=== PATIENT | male | born 1940 | race Caucasian/White ===

== ENCOUNTER 2017-06-15 09:41 | Inpatient (IN) | payer MEDICARE, OTHER ==
[~2017-06-15] VITALS: Ht 172.7 cm; Wt 102.5 kg
[~2017-06-15 09:41] MED LIST: DOXA2; FLUO10; FURO40; HYDACE5 PO; METF500; METR500 PO; RXSULTRIDS PO; SULTRIDS PO
[2017-06-15 10:31] LABS: BASOPHILS ABSOLUTE AUTO 0.05 K/mm3 (0.00-0.23); BASOPHILS PERCENT AUTO 1 % (0-2); EOSINOPHILS ABSOLUTE AUTO 0.11 K/mm3 (0.00-0.68); EOSINOPHILS PERCENT AUTO 2 % (0-6); Hematocrit 43.3 % (37.0-53.0); Hemoglobin 14.5 g/dL (13.5-17.5); IMMATURE GRAN ABSOLUTE AUTO 0.04 K/mm3 (0.00-0.10); IMMATURE GRAN PERCENT AUTO 1 % (0-1); LYMPHOCYTES ABSOLUTE AUTO 0.83 K/mm3 (0.84-5.20); LYMPHOCYTES PERCENT AUTO 11 % (21-46); MONOCYTES PERCENT AUTO 8 % (4-13); Mean Corpuscular HGB 31.7 pg (26.0-34.0); Mean Corpuscular HGB Conc 33.5 g/dL (31.5-36.5); Mean Corpuscular Volume 95 fL (80-100); Mean Platelet Volume 10.4 fL (9.1-12.4); NEUTROPHILS ABSOLUTE AUTO 5.72 K/mm3 (1.96-9.15); NEUTROPHILS PERCENT AUTO 78 % (41-73); Platelet Count 165 K/mm3 (150-400); RDW Coefficient Variation 13.4 % (11.7-14.2); RDW Standard Deviation 46.4 fL (35.1-46.3); Red Blood Cell Count 4.57 M/mm3 (4.30-5.90); White Blood Cell Count 7.35 K/mm3 (4.00-11.30)
[2017-06-15 10:56] LABS: Alanine Aminotransfer (ALT/SGP 31 U/L (12-78); Albumin, Blood 3.3 g/dL (3.4-5.0); Albumin/Globulin Ratio 0.8 (0.8-1.8); Alk Phos 83 U/L (50-136); Anion Gap 7 mmol/L (6-16); Aspartate Aminotrans (AST/SGOT 25 U/L (12-37); Blood Urea Nitrogen 12 mg/dL (8-24); Bun/Creatinine Ratio 15.1 (12.0-20.0); CO2, Blood 27 mmol/L (21-32); Chloride, Blood 103 mmol/L (98-108); Globulin, Blood 3.9 g/dL (2.2-4.0); Glomerular Filtration Rate >60 (60-); Glucose, Blood 143 mg/dL (70-99); Potassium, Blood 3.8 mmol/L (3.5-5.5); Sodium, Blood 137 mmol/L (136-145); Total Protein, Blood 7.2 g/dL (6.4-8.2)
[2017-06-15] MEDS ORDERED: LISI20 (11:13)
[2017-06-15] MEDS ORDERED: HYDCHL12.5 PO (11:14)
[2017-06-15 11:15] LABS: Influenza A Negative (NEGATIVE); Influenza B Negative (NEGATIVE)
[2017-06-15] MEDS ORDERED: ATOR40TA PO (11:15)
[2017-06-15] MEDS ORDERED: Prozac20 MG PO (11:16)
[2017-06-15] MEDS ORDERED: Carbidopa-Levo1 EAC4 PO (11:16)
[2017-06-15] MEDS ORDERED: DOXA4 PO (11:17)
[2017-06-15] MEDS ORDERED: LISI20 PO (11:18)
[2017-06-16 05:05] LABS: BASOPHILS ABSOLUTE AUTO 0.03 K/mm3 (0.00-0.23); BASOPHILS PERCENT AUTO 1 % (0-2); EOSINOPHILS ABSOLUTE AUTO 0.24 K/mm3 (0.00-0.68); EOSINOPHILS PERCENT AUTO 5 % (0-6); Hematocrit 39.1 % (37.0-53.0); Hemoglobin 12.7 g/dL (13.5-17.5); IMMATURE GRAN ABSOLUTE AUTO 0.02 K/mm3 (0.00-0.10); IMMATURE GRAN PERCENT AUTO 0 % (0-1); LYMPHOCYTES PERCENT AUTO 22 % (21-46); MONOCYTES ABSOLUTE AUTO 0.47 K/mm3 (0.16-1.47); MONOCYTES PERCENT AUTO 10 % (4-13); Mean Corpuscular HGB Conc 32.5 g/dL (31.5-36.5); Mean Corpuscular Volume 95 fL (80-100); Mean Platelet Volume 10.4 fL (9.1-12.4); NEUTROPHILS PERCENT AUTO 61 % (41-73); Platelet Count 141 K/mm3 (150-400); RDW Coefficient Variation 13.6 % (11.7-14.2); RDW Standard Deviation 47.7 fL (35.1-46.3); White Blood Cell Count 4.56 K/mm3 (4.00-11.30)
[2017-06-16 05:22] LABS: Alanine Aminotransfer (ALT/SGP 9 U/L (12-78); Albumin, Blood 2.8 g/dL (3.4-5.0); Albumin/Globulin Ratio 0.8 (0.8-1.8); Alk Phos 67 U/L (50-136); Anion Gap 6 mmol/L (6-16); Aspartate Aminotrans (AST/SGOT 23 U/L (12-37); Bilirubin, Total 1.4 mg/dL (0.1-1.0); Blood Urea Nitrogen 15 mg/dL (8-24); Bun/Creatinine Ratio 19.2 (12.0-20.0); CO2, Blood 28 mmol/L (21-32); Calcium, Blood 8.4 mg/dL (8.5-10.1); Chloride, Blood 106 mmol/L (98-108); Creatinine, Blood 0.78 mg/dL (0.60-1.20); Globulin, Blood 3.3 g/dL (2.2-4.0); Glomerular Filtration Rate >60 (60-); Glucose, Blood 124 mg/dL (70-99); Potassium, Blood 3.6 mmol/L (3.5-5.5); Sodium, Blood 140 mmol/L (136-145); Total Protein, Blood 6.1 g/dL (6.4-8.2)
[2017-06-16 09:49] LABS: Anion Gap 7 mmol/L (6-16); Blood Urea Nitrogen 14 mg/dL (8-24); Bun/Creatinine Ratio 20.1 (12.0-20.0); CO2, Blood 25 mmol/L (21-32); Calcium, Blood 8.5 mg/dL (8.5-10.1); Chloride, Blood 107 mmol/L (98-108); Glomerular Filtration Rate >60 (60-); Glucose, Blood 170 mg/dL (70-99); Potassium, Blood 3.7 mmol/L (3.5-5.5); Sodium, Blood 139 mmol/L (136-145)
[2017-06-17 04:34] LABS: BASOPHILS ABSOLUTE AUTO 0.03 K/mm3 (0.00-0.23); BASOPHILS PERCENT AUTO 1 % (0-2); EOSINOPHILS ABSOLUTE AUTO 0.27 K/mm3 (0.00-0.68); EOSINOPHILS PERCENT AUTO 6 % (0-6); Hematocrit 39.9 % (37.0-53.0); Hemoglobin 13.1 g/dL (13.5-17.5); IMMATURE GRAN ABSOLUTE AUTO 0.03 K/mm3 (0.00-0.10); IMMATURE GRAN PERCENT AUTO 1 % (0-1); LYMPHOCYTES ABSOLUTE AUTO 1.08 K/mm3 (0.84-5.20); LYMPHOCYTES PERCENT AUTO 25 % (21-46); MONOCYTES ABSOLUTE AUTO 0.36 K/mm3 (0.16-1.47); MONOCYTES PERCENT AUTO 8 % (4-13); Mean Corpuscular HGB 31.5 pg (26.0-34.0); Mean Corpuscular HGB Conc 32.8 g/dL (31.5-36.5); Mean Corpuscular Volume 96 fL (80-100); Mean Platelet Volume 10.2 fL (9.1-12.4); NEUTROPHILS ABSOLUTE AUTO 2.56 K/mm3 (1.96-9.15); NEUTROPHILS PERCENT AUTO 59 % (41-73); Platelet Count 143 K/mm3 (150-400); RDW Coefficient Variation 13.2 % (11.7-14.2); RDW Standard Deviation 47.4 fL (35.1-46.3); Red Blood Cell Count 4.16 M/mm3 (4.30-5.90); White Blood Cell Count 4.33 K/mm3 (4.00-11.30)
[2017-06-17] MEDS ORDERED: AZIT500 PO (15:07)
[2017-06-17] MEDS ORDERED: CEPH500 PO (15:08)
== END 2017-06-17 15:30 | disposition home or self-care (01) | DRG 195 ==
LOC: ER 09:41 → MEDS 13:24
PROVIDERS: Emergency Medicine; Family Medicine
DX: J18.9 Pneumonia, unspecified organism (principal); E11.69 Type 2 diabetes mellitus with other specified complication; E66.9 Obesity, unspecified; E78.5 Hyperlipidemia, unspecified; I10 Essential (primary) hypertension; G20 Parkinson's disease; R29.6 Repeated falls; M19.011 Primary osteoarthritis, right shoulder; Z68.34 Body mass index [BMI] 34.0-34.9, adult; Z87.891 Personal history of nicotine dependence; Z88.5 Allergy status to narcotic agent; Z79.84 Long term (current) use of oral hypoglycemic drugs; Z79.899 Other long term (current) drug therapy
CPT/HCPCS: 36415; 71046; 73030; 80048; 80053; 81000; 82947; 83036; 83605; 84484; 85025; 87040; 87804; 92610; 93005; 93010; 94640; 94760; 94762; 96360; 96361; 97116; 97162; 97166; 97530; 97535; 99285; G8978; G8979; G8987; G8988; G8996; G8997; G8998; J0696; J1650; J7030

== ENCOUNTER 2018-02-20 12:01 | Emergency (ER) | payer MEDICARE, OTHER ==
[~2018-02-20] VITALS: Ht 172.7 cm; Wt 99.8 kg
[~2018-02-20 12:01] MED LIST changes: +ATOR40TA PO; +AZIT500 PO; +CEPH500 PO; +Carbidopa-Levo1 EAC4 PO; +DOXA4 PO; +HYDCHL12.5 PO; +LISI20; +LISI20 PO; +Prozac20 MG PO
== END 2018-02-20 13:18 | disposition home or self-care (01) ==
LOC: ER 12:01
DX: R07.81 Pleurodynia (principal); Z88.5 Allergy status to narcotic agent; Z79.899 Other long term (current) drug therapy; G20 Parkinson's disease; Z87.891 Personal history of nicotine dependence
CPT/HCPCS: 71046; 99283-25

== ENCOUNTER 2018-08-08 00:22 | Emergency (ER) | payer MEDICARE, OTHER ==
[2018-08-08 03:11] LABS: Alanine Aminotransfer (ALT/SGP 23 U/L (12-78); Albumin, Blood 2.8 g/dL (3.4-5.0); Alk Phos 62 U/L (50-136); Anion Gap 12 mmol/L (6-16); Aspartate Aminotrans (AST/SGOT 19 U/L (12-37); Bilirubin, Total 0.7 mg/dL (0.1-1.0); Blood Urea Nitrogen 24 mg/dL (8-24); Bun/Creatinine Ratio 26.2 (12.0-20.0); CO2, Blood 20 mmol/L (21-32); Calcium, Blood 8.2 mg/dL (8.5-10.1); Chloride, Blood 108 mmol/L (98-108); Creatinine, Blood 0.92 mg/dL (0.60-1.20); Globulin, Blood 2.7 g/dL (2.2-4.0); Glomerular Filtration Rate >60 (60-); Glucose, Blood 194 mg/dL (70-99); Potassium, Blood 3.8 mmol/L (3.5-5.5); Sodium, Blood 140 mmol/L (136-145); Total Protein, Blood 5.5 g/dL (6.4-8.2); Troponin I <0.015 ng/mL (0.000-0.040)
[2018-08-08 03:21] LABS: BASOPHILS ABSOLUTE AUTO 0.05 K/mm3 (0.00-0.23); BASOPHILS PERCENT AUTO 1 % (0-2); EOSINOPHILS ABSOLUTE AUTO 0.11 K/mm3 (0.00-0.68); EOSINOPHILS PERCENT AUTO 1 % (0-6); Hematocrit 36.4 % (37.0-53.0); Hemoglobin 11.9 g/dL (13.5-17.5); IMMATURE GRAN ABSOLUTE AUTO 0.09 K/mm3 (0.00-0.10); IMMATURE GRAN PERCENT AUTO 1 % (0-1); International Normalized Ratio 1.19; LYMPHOCYTES ABSOLUTE AUTO 1.73 K/mm3 (0.84-5.20); LYMPHOCYTES PERCENT AUTO 21 % (21-46); MONOCYTES ABSOLUTE AUTO 0.45 K/mm3 (0.16-1.47); MONOCYTES PERCENT AUTO 6 % (4-13); Mean Corpuscular HGB 31.8 pg (26.0-34.0); Mean Corpuscular HGB Conc 32.7 g/dL (31.5-36.5); Mean Corpuscular Volume 97 fL (80-100); Mean Platelet Volume 10.3 fL (9.1-12.4); NEUTROPHILS ABSOLUTE AUTO 5.79 K/mm3 (1.96-9.15); NEUTROPHILS PERCENT AUTO 71 % (41-73); Platelet Count 145 K/mm3 (150-400); Prothrombin Time Results 12.4 Sec (9.7-11.5); RDW Coefficient Variation 13.2 % (11.7-14.2); Red Blood Cell Count 3.74 M/mm3 (4.30-5.90); White Blood Cell Count 8.22 K/mm3 (4.00-11.30)
== END 2018-08-08 02:35 | disposition short-term general hospital (02) ==
LOC: ER 00:22
PROVIDERS: Emergency Medicine
DX: K92.2 Gastrointestinal hemorrhage, unspecified (principal); I25.2 Old myocardial infarction; I25.10 Atherosclerotic heart disease of native coronary artery without angina pectoris; E11.9 Type 2 diabetes mellitus without complications; Z79.899 Other long term (current) drug therapy; Z79.84 Long term (current) use of oral hypoglycemic drugs
CPT/HCPCS: 36430; 80053; 84484; 85025; 85610; 85730; 86850; 86900; 86901; 86923; 96361; 96374; 96375; 99284-25; C9113; J2405; J7030; J7120; P9016

== ENCOUNTER 2018-11-02 20:28 | Emergency (ER) | payer MEDICARE, OTHER ==
[~2018-11-02] VITALS: Ht 172.7 cm; Wt 102.5 kg
== END 2018-11-02 23:25 | disposition home or self-care (01) ==
LOC: ER 20:28
DX: S42.254A Nondisplaced fracture of greater tuberosity of right humerus, initial encounter for closed fracture (principal); I10 Essential (primary) hypertension; E11.9 Type 2 diabetes mellitus without complications; G20 Parkinson's disease; Z87.891 Personal history of nicotine dependence; Z88.5 Allergy status to narcotic agent; Z79.899 Other long term (current) drug therapy; Z79.84 Long term (current) use of oral hypoglycemic drugs; W18.2XXA Fall in (into) shower or empty bathtub, initial encounter; Y93.E1 Activity, personal bathing and showering
CPT/HCPCS: 73030; 73200; 99284-25; A9270; A9270-GY

== ENCOUNTER 2018-12-27 12:42 | Inpatient (IN) | payer MEDICARE, OTHER ==
[~2018-12-27] VITALS: Ht 172.7 cm; Wt 101.9 kg
[~2018-12-27 12:42] MED LIST changes: +BENADRYL25 MG PO; +BUPR150ER PO; +Doxazosin Mesyla4 MG PO; +FURO20 PO; +METO25ER PO; +POTA10T PO; +Prozac40 MG PO; +THERA-D2000 UNIT PO; +Tylenol325 MG PO
--- NOTE | 2018-12-28 11:29 | NUR ---
"DAY SURGERY RN | TO OR BOTH DOCTORS AND FOOD AND BEVERAGE OUTLETS MANAGER HAVE SEEN. REPORT TO TENISHA ESCALERA RN. TO OR."
--- NOTE | 2018-12-28 11:33 | NUR ---
"DAY SURGERY RN | PATIENT BELONGINGS TAKEN TO ROOM INCLUDING WHEELCHAIR AND BAG OF CLOTHES."
--- NOTE | 2018-12-28 13:41 | NUR ---
12/28/18 1341 Aissatou Branch WENT OPEN AT [id number]
--- NOTE | 2018-12-28 17:00 | NUR ---
PATIENT ARRIVED FROM THE OR TO ICU ROOM 7 VIA ICU BED, PATIENT IS EXTUBATED AND CURRENTLY ON A NRB MASK WITH 6L OF O2 INFUSING, O2 SATURATION IN MID TO UPPER 90'S, PATIENT IS IN SR WITH HR IN 80'S, SBP'S IN 90'S TO LOW 100'S, NEOSYNEPHRINE AVAILABLE IF NEEDED, PATIENT HAS 2 PIV'S 18G IN RIGHT FA AND 18G IN LEFT UPPER ARM, PATIENT ALSO ARRIVED WITH A ART LINE IN PLACE BUT WE WERE UNABLE TO OBTAIN READING AND ART LINE WAS DISCONTINUED PER ANESTHESIOLOGIST, PRESSURE WAS HELD FOR 15 MINUTES AND HEMOSTASIS OBTAINED, PATIENT HAS LR AT 125 CC/HR INFUSING AT THIS TIME, HAS MIDABDOMINAL INCISION WITH SMALL AMOUNT OF SANGINOUS DRAINAGE, DRESSING WITH WOUNDVAC, ALSO THERE IS A LEFT LOWER QUADRANT PUNCTURE SITE COVERED WITH GAUZE, NO BLEEDING NOTED, RIGHT LOWER QUADRANT HAS A MAIDA DRAIN WITH SANGUINOUS DRAINAGE, NO BOWEL TONES NOTED AT THIS TIME, PATIENT ALSO HAS A BARRERA CATHETER IN PLACE WITH SMALL AMOUNT OF DARK YELLOW URINE DRAINING, PATIENT IS AROUSEABLE TO VERBAL STIMULI AND ABLE TO UTTER A FEW WORDS AND OTHERWISE GROANS AT TIMES, NO SIGN OF PAIN AT THIS TIME, PATIENT WAS PLACED ON MONITOR, FAMILY AT BEDSIDE, ORIENTED TO NEW ENVIRONMENT AND ROOM, CALL LIGHT GIVEN AND EXPLAINED, FAMILY VERBALIZED UNDERSTANDING, CALL LIGHT IN REACH, WILL CONTINUE TO MONITOR.
[2018-12-28 17:29] LABS: BASOPHILS ABSOLUTE AUTO 0.03 K/mm3 (0.00-0.23); BASOPHILS PERCENT AUTO 0 % (0-2); EOSINOPHILS ABSOLUTE AUTO 0.01 K/mm3 (0.00-0.68); EOSINOPHILS PERCENT AUTO 0 % (0-6); Hemoglobin 13.2 g/dL (13.5-17.5); IMMATURE GRAN ABSOLUTE AUTO 0.04 K/mm3 (0.00-0.10); IMMATURE GRAN PERCENT AUTO 0 % (0-1); LYMPHOCYTES ABSOLUTE AUTO 0.71 K/mm3 (0.84-5.20); LYMPHOCYTES PERCENT AUTO 7 % (21-46); MONOCYTES ABSOLUTE AUTO 0.69 K/mm3 (0.16-1.47); MONOCYTES PERCENT AUTO 7 % (4-13); Mean Corpuscular HGB 28.4 pg (26.0-34.0); Mean Corpuscular HGB Conc 31.4 g/dL (31.5-36.5); Mean Corpuscular Volume 90 fL (80-100); Mean Platelet Volume 9.6 fL (9.1-12.4); NEUTROPHILS ABSOLUTE AUTO 8.99 K/mm3 (1.96-9.15); NEUTROPHILS PERCENT AUTO 86 % (41-73); Platelet Count 284 K/mm3 (150-400); RDW Coefficient Variation 14.5 % (11.7-14.2); RDW Standard Deviation 47.8 fL (35.1-46.3); Red Blood Cell Count 4.65 M/mm3 (4.30-5.90); White Blood Cell Count 10.47 K/mm3 (4.00-11.30)
--- NOTE | 2018-12-28 17:30 | NUR ---
REYNA DONATO DID NOT DO THE CARE OF THIS PT BRANNON DONATO DID AND CHARTING WAS DONE UNDER TON NAME UNKNOWN TO BRANNON DONATO AT THE TIME . PT HAD NO ACUTE CHANGES WHILE IN PACU LEFT PACU WITH STABLE VS
[2018-12-28 17:48] LABS: Anion Gap 10 mmol/L (6-16); Blood Urea Nitrogen 19 mg/dL (8-24); Bun/Creatinine Ratio 21.8 (12.0-20.0); CO2, Blood 24 mmol/L (21-32); Calcium, Blood 8.6 mg/dL (8.5-10.1); Chloride, Blood 104 mmol/L (98-108); Creatinine, Blood 0.87 mg/dL (0.60-1.20); Glomerular Filtration Rate >60 (60-); Glucose, Blood 180 mg/dL (70-99); Potassium, Blood 3.8 mmol/L (3.5-5.5); Sodium, Blood 138 mmol/L (136-145)
--- NOTE | 2018-12-28 20:57 | NUR ---
ASSUMED PT CARE AT 1915 FROM KINGA SHAH PT SLEEPING IN BED; EASILY AROUSABLE. STILL WAKING UP FROM GENERAL ANESTHESIA. NON-REBREATHER MASK ON AT 6L/MIN. ALERT TO PERSON, PLACE, TIME, AND EVENT. PT CONTINUES TO STATE HE FEELS THE NEED TO PEE. BARRERA CATHETER IS PATENT AND DRAINING TO GRAVITY; IRRIGATED WITH 30CC OF WATER. NO FAMILY AT BEDSIDE AT THIS TIME. PT ABLE TO FOLLOW COMMANDS APPROPRIATELY. PT DENIED PAIN AT FIRST, AND THEN COMPLAINED OF PAIN TO HIS ABDOMEN. HE IS ABLE TO DEEP BREATHE WHEN INSTRUCTED; UNABLE TO COUGH D/T MAJOR ABDOMINAL SURGERY, BUT HE IS ABLE TO CLEAR HIS THROAT. PT SWITCHED OVER TO 2L VIA NC; WITH BIOX MAINTAINING GREATER THAN 95%. MEDICATED WITH 25MG OF FENTANYL PER ORDERS AND PT WAS REPOSITIONED FOR COMFORT. CALL LIGHT WITHIN REACH; WILL CONTINUE TO ASSESS PT FOR NEEDS.
--- NOTE | 2018-12-29 02:27 | NUR ---
PT BECAME NAUSEAS; MEDICATED WITH PRN ZOFRAN PER ORDERS. APPLIED COLD CLOTHS TO FOREHEAD AND BACK OF NECK. NAUSEA RESOLVED. PT THEN C/O PAIN; MEDICATED WITH 50MCG OF FENTANYL PER ORDERS. UPON FLUSHING IV POST MED ADMINISTRATION; IT WAS NOTED THAT IV HAD INFILTRATED. IMMEDIATLY STOPPED FLUIDS AND DISCONTINUED IV ACCESS. INITIATED NEW IV ACCESS TO RIGHT AC. PT STATED RELIEF FROM PAIN MEDICATION; THEREFORE, IT APPEARS PT RECEIVED FENTANYL DOSE BEFORE IV HAD INFILTRATED.
[2018-12-29 03:52] LABS: BASOPHILS ABSOLUTE AUTO 0.01 K/mm3 (0.00-0.23); BASOPHILS PERCENT AUTO 0 % (0-2); EOSINOPHILS PERCENT AUTO 0 % (0-6); Hematocrit 40.8 % (37.0-53.0); Hemoglobin 12.6 g/dL (13.5-17.5); IMMATURE GRAN ABSOLUTE AUTO 0.03 K/mm3 (0.00-0.10); IMMATURE GRAN PERCENT AUTO 0 % (0-1); LYMPHOCYTES ABSOLUTE AUTO 0.46 K/mm3 (0.84-5.20); LYMPHOCYTES PERCENT AUTO 6 % (21-46); MONOCYTES ABSOLUTE AUTO 0.64 K/mm3 (0.16-1.47); MONOCYTES PERCENT AUTO 8 % (4-13); Mean Corpuscular HGB 28.6 pg (26.0-34.0); Mean Corpuscular HGB Conc 30.9 g/dL (31.5-36.5); Mean Platelet Volume 9.8 fL (9.1-12.4); NEUTROPHILS ABSOLUTE AUTO 6.84 K/mm3 (1.96-9.15); NEUTROPHILS PERCENT AUTO 86 % (41-73); Platelet Count 250 K/mm3 (150-400); RDW Coefficient Variation 14.6 % (11.7-14.2); RDW Standard Deviation 49.5 fL (35.1-46.3); Red Blood Cell Count 4.41 M/mm3 (4.30-5.90); White Blood Cell Count 7.98 K/mm3 (4.00-11.30)
[2018-12-29 03:55] LABS: Mean Corpuscular Volume 93 fL (80-100)
--- NOTE | 2018-12-29 05:16 | NUR ---
END OF SHIFT SUMMARY PT IS MORE ALERT AND ORIENTED. ABLE TO FOLLOW COMMANDS AND MAKE NEEDS KNOWN. ABLE TO PROTECT OWN AIRWAY. ABLE TO DEEP BREATHE AND CLEAR THROAT; PT ATTEMPTED TO COUGH, BUT WAS TO PAINFUL. MEDICATED WITH FENTANYL PER ORDERS T/O NIGHT; WHICH APPEARED EFFECTIVE. PT REMAINED ON 2L VIA NC T/O NIGHT WITH BIOX GREATER THAN 91%. LUNG SOUNDS ARE CLEAR T/O AND DIMINISHED TO BILATERAL LOWER LOBES. NSR WITH HR 70-80'S. ABDOMEN IS SEVERLY DISTENDED, FIRM AND TENDER UPON PALPATION. MIDLINE INCISION HAS WOUND VAC THAT IS PATENT AND INTACT; MINIMAL SANGUINEOUS DRAINAGE NOTED TO DRESSING. ACTIVE BT NOTED TO RUQ ONLY; HYPOACTIVE T/O ALL OTHER QUADRANTS. ABDOMEN NOTED TO BE PROTRUDING MORE TO RIGHT SIDE WITH A FLAT APPEARANCE MORE TO THE LEFT, WHICH WAS PT'S BASELINE UPON ASSUMPTION OF CARE. MAIDA DRAIN TO RLQ WITH MODERATE AMOUNTS OF SANGUINEOUS DRAINGE NOTED. RIGHT RADIAL ACCESS SITE REMAINS SOFT, NON-TENDER, NO SIGNS OF HEMATOMA; CAP REFILL <3SEC. DENIES ANY NUMBNESS TINGLING TO DISTAL FINGERS; RADIAL PULSE IS STRONG. DISTAL FINGERS ARE COOL, BUT SKIN COLOR IS NORMAL AND BIOX NOTED TO HAVE A GOOD PLETH. ARMBOARD REMAINS INTACT TO RIGHT WRIST/FOREARM. MODERATE, NON-PITTING EDEMA NOTED TO BILATERAL ANKLES. LR INFUSING AT 125MLS/HR. BARRERA CATH IS PATENT AND DRAINING TO GRAVITY; MINIMAL URINE OUTPUT THIS SHIFT; TOTAL OF 375CC NOTED TO BE DARK YELLOW. ATTEMPTED REPOSITIONING EVERY TWO HOURS; HOWEVER, PT ALWAYS FELT IT TO BE MORE COMFORTABLE ON HIS BACK. UNABLE TO TOLERATE BEING ON SIDE FOR VERY LONG. SHIFTED HIPS AND WEIGHT EVERY TWO HOURS TO HELP OFFLOAD BODY WEIGHT ON HIGH RISK PRESSURE AREAS. PT WAS MORE AWAKE AND ALERT; TRIALED SIPS OF WATER IN WHICH PT TOLERATED VERY WELL. ADMINISTERED 0600 MEDICATIONS WHOLE WITH WATER IN WHICH PT DIDN'T APPEARS TO SHOW ANY SIGNS OF CHOKING OR SILENT ASPIRATION. CALL LIGHT LEFT WITHIN REACH; APPEARS COMFORTABLE AT THIS TIME. WILL CONTINUE TO MONITOR UNTIL REPORT IS HANDED OFF TO ONCOMING RN.
--- NOTE | 2018-12-29 07:24 | NUR ---
DR RAMIREZ IN TO SEE PT Plan of care discussed. Provider states pt is appropriate for surgical floor status without telemetry. States pt is okay to take meds with water. Okay for clear liquid diet.
--- NOTE | 2018-12-29 09:45 | NUR ---
PHYSICAL THERAPY IN TO SEE PT PT Hi in to see pt. This RN assisted to help pt sit on edge of bed and then stand. Pt tolerated activity well. Anxious and stated "I can't do it" several times. After returning to bed, pain assessed. Pt stated he was comfortable. Will continue to reassess.
--- NOTE | 2018-12-29 10:11 | NUR ---
CALL PLACED TO DR RAMIREZ Physical therapistHi, recommended occupational therapy. This RN placed call to Dr Ramirez. New orders given.
--- NOTE | 2018-12-29 10:30 | NUR ---
TRANSFER TO ROOM 208 Pt transferred to surgical floor. Telephone report given to Debra DONATO. Pt tranported via bed. Medications, chart, and belongings transferred with patient.
--- NOTE | 2018-12-29 12:03 | NUR ---
ARRIVAL TRANSFER FROM ICU TO ROOM 208 AT APPROX 1040. PT IS ORIENTED, BUT SLIGHTY SLEEPY. PT IS VERY HARD OF HEARING. PT DID REPORT NAUSEA AND 3/10 NECK PAIN. ROLLED TOWEL PLACED UNDER NECK FOR COMFORT AND R SHOULDER REPOSITIONED ON PILLOW FOR COMFORT. THIS RN MEDICATED PT WITH ZOFRAN AND 25MCG IV FENTANYL. IVF INFUSING PER ORDERS. BLE ELEVATED ON PILLOWS. SCDS IN PLACE. OFFERING SIPS OF WATER TOLERATED. MARTA WOUND VAC DRESSING TO ABD COMPRESSED AND CDI. MAIDA WITH SANGUINOUS OUTPUT. BARRERA PATENT WITH DARK YELLOW URINE. FAMILY AT BEDSIDE FOR SUPPORT. BED ALARM ON FOR SAFETY. CALL LIGHT WITHIN REACH.
--- NOTE | 2018-12-29 16:23 | NUR ---
SHIFT SUMMARY NO ACUTE CHANGES SINCE ARRIVING TO UNIT. MEDICATED WITH 25MCG IV FENTANYL FOR PAIN PER ORDERS. ZOFRAN X1 FOR NAUSEA WHICH HAS IMPROVED. SLOWLY SIPPING ON WATER. MARTA ABD WOUND VAC REMAINS CDI. MAIDA WITH SANGUINOUS DRAINAGE. BARRERA PATENT. PT DENIES PASSING GAS THIS SHIFT. HYPOACTIVE BTS X4 QUAD. IVF INFUSING PER ORDERS. FAMILY AT BEDSIDE. CALL LIGHT WITHIN REACH.
[2018-12-30 06:00] LABS: BASOPHILS ABSOLUTE AUTO 0.02 K/mm3 (0.00-0.23); BASOPHILS PERCENT AUTO 0 % (0-2); EOSINOPHILS ABSOLUTE AUTO 0.06 K/mm3 (0.00-0.68); EOSINOPHILS PERCENT AUTO 1 % (0-6); Hematocrit 35.2 % (37.0-53.0); Hemoglobin 10.9 g/dL (13.5-17.5); IMMATURE GRAN ABSOLUTE AUTO 0.04 K/mm3 (0.00-0.10); IMMATURE GRAN PERCENT AUTO 1 % (0-1); LYMPHOCYTES ABSOLUTE AUTO 1.09 K/mm3 (0.84-5.20); LYMPHOCYTES PERCENT AUTO 13 % (21-46); MONOCYTES ABSOLUTE AUTO 0.72 K/mm3 (0.16-1.47); MONOCYTES PERCENT AUTO 9 % (4-13); Mean Corpuscular HGB 28.7 pg (26.0-34.0); Mean Corpuscular Volume 93 fL (80-100); Mean Platelet Volume 10.1 fL (9.1-12.4); NEUTROPHILS ABSOLUTE AUTO 6.53 K/mm3 (1.96-9.15); NEUTROPHILS PERCENT AUTO 77 % (41-73); Platelet Count 199 K/mm3 (150-400); RDW Coefficient Variation 14.6 % (11.7-14.2); RDW Standard Deviation 50.1 fL (35.1-46.3); White Blood Cell Count 8.46 K/mm3 (4.00-11.30)
[2018-12-30 06:18] LABS: Anion Gap 3 mmol/L (6-16); Blood Urea Nitrogen 14 mg/dL (8-24); Bun/Creatinine Ratio 17.6 (12.0-20.0); CO2, Blood 30 mmol/L (21-32); Calcium, Blood 8.3 mg/dL (8.5-10.1); Chloride, Blood 107 mmol/L (98-108); Glomerular Filtration Rate >60 (60-); Glucose, Blood 100 mg/dL (70-99); Potassium, Blood 3.8 mmol/L (3.5-5.5); Sodium, Blood 140 mmol/L (136-145)
--- NOTE | 2018-12-30 07:37 | NUR ---
POD 2 S/P RACHEL COLECTOMY. PT VSS T/O NIGHT. DRESSING INTACT, NO ACTIVE DRNG NOTED. MAIDA PUTTING OUT SS DRNG. PAIN MGD PER EMAR W/REP RELIEF. PT NU SM AMT CLEAR LIQ PO, NO C/O N/V. ABD LARGE/DISTENDED, MORE SO ON RIGHT SIDE; ABD FIRM TO PALP. PT REP NO FLATUS YET. PT REPOSITIONED NU T/O NIGHT. BARRERA D/C'D THIS AM. PT ANXIOUS AND FORGETFUL AT TIMES, REORIENTED EASILY; FAMILY IN FOR SUPPORT. BED ALARM ON FOR SAFETY, REPORT GIVEN TO DAY RN.
--- NOTE | 2018-12-30 12:44 | NUR ---
FAMILY REPORTED CONCERNS THAT PT HAD A R SHOULDER FX AND DID NOT MAKE IT TO HIS FOLLOW UP XRAY. IT DOES CAUSE THE PATIENT DISCOMFORT. DR. KELLEY NOTIFIED, NO CHANGES TO REPORT AT THIS TIME.
--- NOTE | 2018-12-30 16:39 | NUR ---
SHIFT SUMMARY PAIN HAS BEEN MANAGED WITH IV PAIN MEDICATION THIS SHIFT. PT HAS REMAINED ALERT AND ORIENTED THIS SHIFT. FAMILY BEEN AT THE BEDSIDE FOR SUPPORT. PT IS A 2 PERSON ASSIST FOR REPOSITIONING. HE WAS ABLE TO WORK WITH THERAPY TODAY AND SIT AT THE EDGE OF THE BED. PT AND FAMILY REPORT PT REQUIRES ASSISTANCE GETTING UP AT HOME. VSS. WILL CONTINUE TO MONITOR.
--- NOTE | 2018-12-30 23:47 | NUR ---
VOIDING PT TRIED TO VOID TWICE. UNABLE TO VOID AND C/O FEELING PRESSURE. BLADDER SCAN PER PROTOCOL FOR 395, STRAIGHT CATH PER PROTOCOL 425 OUT. STERILE TECHNIQUE MAINTAINED. PT TOLERATED WELL. STATED RELIEF.
--- NOTE | 2018-12-31 04:52 | NUR ---
SHIFT SUMMARY POD3 RACHEL COLECTOMY PT AAOX4 DURING SHIFT, SLOW TO RESPOND AT TIMES. PT CALLING APPROPRIATLY DURING SHIFT. URGE TO VOID BUT UNABLE TO GO. STRAIGHT CATH PER PROTOCOL 425 OUT. MEDICATED FOR PAIN WITH PO TYLENOL X1, REPORTED 3/10 PAIN. REPOSITIONED Q2 OR PRN PATIENT REQUESTED TO HELP WITH COMFORT. MAIDA DRAIN HAS 170 SANGUINOUS DRAINAGE DURING SHIFT. PICCO DRESSING INTACT AND COMPRESSED. ABDOMEN STILL DISTENDED, PT DENIES PASSING GAS. NO BOWEL MOVEMENT.
--- NOTE | 2018-12-31 10:50 | NUR ---
ASSUMED CARE ASSUMED CARE AT THIS TIME FROM KINGA VEGA.
--- NOTE | 2018-12-31 10:58 | NUR ---
REPORT GIVEN TO TIN DONATO. PAIN MEDICATION PROVIDED TO PATIENT PRIOR TO CHANGE OF CARE. FAMILY AT THE BEDSIDE. TIN NOTIFIED OF INCREASED ABD DISTENSION TO THE RIGHT ABD SINCE THIS MORINING.
[2018-12-31 13:10] LABS: Source, Urine Catheter
[2018-12-31 13:14] LABS: Bilirubin, Urine Neg (Neg); Blood, Urine 5+ (Neg); Glucose Qualitative, Urine Neg (Neg); Ketones, Urine 3+ (Neg); Leukocyte Esterase, Urine 1+ (Neg); Nitrite, Urine Neg (Neg); Protein, Urine Neg (Neg); Specific Gravity, Urine 1.005 (1.003-1.022); Urobilinogen, Urine NORM (Normal)
[2018-12-31 13:29] LABS: Appearance, Urine Clear (Clear); Color, Urine Yellow (P-Yellow)
[2018-12-31 13:32] LABS: Red Blood Cells, Urine 25-50 /hpf (0-2); Squamous Epithelial Cells Not Seen /hpf (Few); White Blood Cells, Urine 0-2 /hpf (0-5)
[2018-12-31 13:33] LABS: Bacteria Mod /hpf
--- NOTE | 2018-12-31 15:38 | NUR ---
RT IN TO SEE PT AT THIS TIME.
--- NOTE | 2018-12-31 16:13 | NUR ---
SHIFT SUMMARY PT A&O WITH SOME CONFUSSION AT TIMES. VS AND CBG STABLE. HAD SEVERAL EPISODES OF LOSE STOOL, DOCTOR NOTIFIED AND PT CONTINENT OF BM'S. BARRERA PLACED AT 1100 TODAY R/T RETENTION AND IS CURRENTLY PATENT AND DRAINING YELLOW/CLEAR URINE. GENERALIZED EDEMA NOTED, NOTIFIED AND NEW ORDERS FOR LASIX OBTAINED. MAIDA IN PLACE AND DRAINING SERIOUS RED FLUID; DRESSING CHANGED TODAY AND IS C/D/I. MARTA IN PLACE AND DRESSING COMPRESSED/INTACT WITH SHADOWING NOTED. TOLERATING CL, WILL ADVANCE TO FL PER ORDERS. DENIED SOB AND DYSPNEA T/O SHIFT. MEPLIX ON COCCYX FOR PREVENTION C/D/I, TURNED Q2 AND PRN. REPORTS PAIN AT TOLERABLE LEVEL AND DENIED NEED FOR PAIN MEDICATION T/O SHIFT. PT IS CURRENTLY VISITING WITH EX- AND HAS CALL LIGHT WITHIN REACH.
--- NOTE | 2018-12-31 16:34 | NUR ---
PHYSICIAN PHONE CALL CONCERNED REGARDING ABD DISTENTION AND FREQUENT LOOSE STOOLS, ASKED DR. KELLEY IF HE WOULD LIKE TO CHECK FOR C-DIFF, STATES NO NEED TO CHECK FOR C-DIFF AT THIS TIME.
--- NOTE | 2019-01-01 03:55 | NUR ---
SHIFT SUMMARY POD 4 RACHEL COLECTOMY. PT AA0X4, SLOW TO RESPOND AT TIMES. SLEEPING FOR A MAJORITY OF SHIFT. MEDICATED FOR PAIN WITH TYLENOL DURING SHIFT. PT TOLERATES PO WELL. MAIDA DRAIN PATENT AND DRAINING SS DRAINAGE. BARRERA PATENT AND DRAINING. PICCO DRAIN IS COMPRESSED AND SUCTIONING. BELLY DISTENDED AND FEELS LESS FIRM THAN YESTERDAY. NO BOWEL MOVEMENTS DURING SHIFT, PT HAS PASSED GAS. PT REPOSITIONED AT LEAST EVERY TWO HOURS.
[2019-01-01 04:09] LABS: BASOPHILS ABSOLUTE AUTO 0.03 K/mm3 (0.00-0.23); BASOPHILS PERCENT AUTO 0 % (0-2); EOSINOPHILS ABSOLUTE AUTO 0.12 K/mm3 (0.00-0.68); EOSINOPHILS PERCENT AUTO 2 % (0-6); Hematocrit 35.1 % (37.0-53.0); Hemoglobin 10.9 g/dL (13.5-17.5); IMMATURE GRAN ABSOLUTE AUTO 0.03 K/mm3 (0.00-0.10); IMMATURE GRAN PERCENT AUTO 0 % (0-1); LYMPHOCYTES ABSOLUTE AUTO 0.97 K/mm3 (0.84-5.20); LYMPHOCYTES PERCENT AUTO 13 % (21-46); MONOCYTES ABSOLUTE AUTO 0.54 K/mm3 (0.16-1.47); MONOCYTES PERCENT AUTO 7 % (4-13); Mean Corpuscular HGB 28.7 pg (26.0-34.0); Mean Corpuscular HGB Conc 31.1 g/dL (31.5-36.5); Mean Corpuscular Volume 92 fL (80-100); Mean Platelet Volume 9.9 fL (9.1-12.4); NEUTROPHILS ABSOLUTE AUTO 5.74 K/mm3 (1.96-9.15); NEUTROPHILS PERCENT AUTO 77 % (41-73); Platelet Count 196 K/mm3 (150-400); RDW Coefficient Variation 14.3 % (11.7-14.2); RDW Standard Deviation 48.3 fL (35.1-46.3); White Blood Cell Count 7.43 K/mm3 (4.00-11.30)
[2019-01-01 04:27] LABS: Anion Gap 4 mmol/L (6-16); Blood Urea Nitrogen 9 mg/dL (8-24); Bun/Creatinine Ratio 12.9 (12.0-20.0); CO2, Blood 31 mmol/L (21-32); Calcium, Blood 8.1 mg/dL (8.5-10.1); Chloride, Blood 102 mmol/L (98-108); Glomerular Filtration Rate >60 (60-); Glucose, Blood 89 mg/dL (70-99); Magnesium, Blood 1.5 mg/dL (1.6-2.4); Phosphorus, Blood 2.8 mg/dL (2.5-4.9); Potassium, Blood 3.3 mmol/L (3.5-5.5); Sodium, Blood 137 mmol/L (136-145)
--- NOTE | 2019-01-01 07:51 | NUR ---
DR RAMIREZ TO SEE PT, DISCUSSED PT'S STATUS. REPORTS TO TAKE OFF WRIST BOARD. REPORTS TO GIVE LOVENOX IN THIGH AREA. PT S.L. PER DR. ZIMMERMAN IN TO WORK WITH PT.
--- NOTE | 2019-01-01 18:02 | NUR ---
SHIFT SUMMARY PT EATING AND DRINKING. PT HAS BARRERA IN PLACE. PT HAS MAIDA IN PLACE. PT WAS UP TO CHAIR FOR SOME TIME TODAY, BACK TO BED THIS AFTERNOON PER PT REQ. PT HAS MEPILEX IN PLACE TO BOTTOM. PILLOW CASE BEEN IN PLACE TO ABD FOLD. BATTERY WAS PLACED BY FAMILY FOR PT'S NEUROSTIMULATOR. PT BEEN RESTING QUIETLY, RESP E/U. ALARM IN PLACE.
--- NOTE | 2019-01-02 01:43 | NUR ---
0143: PT C/O SEVERE SCROTUM DISCOMFORT, WITH ITCH AND BURNING TIGHTNESS. SCROTUM AND SURROUNDING TISSUE FOUND TO BE 2+ EDEMATOUS. PT REPOSITIONED AND FLOATED ON PILLOWS; CATH, BERRY AND SKIN CARE COMPLETED WITH NEW PROTECTIVE MEPILEX APPLIED TO COCCYX. BARRERA PATENT, FLUSHED WELL AND NO SEDIMENT PRESENT IN 850 ML URINE EMPTIED. SCROTUM AND BERRY FOLDS FOUND TO BE RED WITH EXCORIATIONS AND STRONG YEAST LIKE ODOR. RN TO REQUEST NYSTATIN POWDER. CALL LIGHT IN REACH.
[2019-01-02 06:58] LABS: BASOPHILS ABSOLUTE AUTO 0.02 K/mm3 (0.00-0.23); BASOPHILS PERCENT AUTO 0 % (0-2); EOSINOPHILS ABSOLUTE AUTO 0.14 K/mm3 (0.00-0.68); EOSINOPHILS PERCENT AUTO 2 % (0-6); Hematocrit 35.8 % (37.0-53.0); Hemoglobin 11.1 g/dL (13.5-17.5); IMMATURE GRAN ABSOLUTE AUTO 0.05 K/mm3 (0.00-0.10); IMMATURE GRAN PERCENT AUTO 1 % (0-1); LYMPHOCYTES ABSOLUTE AUTO 0.89 K/mm3 (0.84-5.20); LYMPHOCYTES PERCENT AUTO 13 % (21-46); MONOCYTES ABSOLUTE AUTO 0.59 K/mm3 (0.16-1.47); MONOCYTES PERCENT AUTO 8 % (4-13); Mean Corpuscular HGB 28.2 pg (26.0-34.0); Mean Corpuscular Volume 91 fL (80-100); Mean Platelet Volume 9.8 fL (9.1-12.4); NEUTROPHILS ABSOLUTE AUTO 5.38 K/mm3 (1.96-9.15); NEUTROPHILS PERCENT AUTO 76 % (41-73); Platelet Count 213 K/mm3 (150-400); RDW Coefficient Variation 14.5 % (11.7-14.2); RDW Standard Deviation 47.6 fL (35.1-46.3); Red Blood Cell Count 3.94 M/mm3 (4.30-5.90); White Blood Cell Count 7.07 K/mm3 (4.00-11.30)
--- NOTE | 2019-01-02 07:49 | NUR ---
DR RAMIREZ HERE TO SEE PT, DISCUSSED PT'S STATUS. DR ASSESSED PT'S SCROTUM, ELEVATED ON WASH CLOTHS, POWDER ALREADY BEEN APPLIED. DR RAMIREZ DC'D MAIDA DRAIN AND PLACED STERI-STRIPS AND NEW DRESSING. DR RAMIREZ STATED TO D/C BARRERA TODAY AND SEE IF PT ABLE TO VOID ON OWN TODAY.
--- NOTE | 2019-01-02 16:25 | NUR ---
SHIFT SUMMARY PT EATING WITH ASSIST. PT DRINKING. PT VOIDED THIS AFTERNOON. PT CONT TO HAVE LIQUID STOOL. PT WORKED WITH THERAPY TODAY. PT BEEN UP IN CHAIR MOST OF DAY. PT USING CALL LIGHT APPR. FAMILY BEEN TO VISIT PT. PT BEEN ASSISTED WITH ADL'S PRN.
--- NOTE | 2019-01-02 16:34 | NUR ---
PO WATER INTAKE BEEN ENCOURAGED.
--- NOTE | 2019-01-02 16:44 | NUR ---
OTHER KINGA Wheatley GIVEN REPORT AND IS ASSUMING CARE OF PT.
--- NOTE | 2019-01-02 18:19 | NUR ---
ASSUMED CARE SINCE ASSUMING CARE, PT WAS INITIALLY FEELING "BARELY" NAUSEATED; TREATED WITH RX, REPORTS RELIEF. RESTING IN BED. DENEIS NEEDS.
--- NOTE | 2019-01-03 05:59 | NUR ---
SHIFT SUMMARY: PT POD#6 FOR RACHEL COLECTOMY. MARTA WOUND VAC CDI AND COMPRESSED. NU ADA DIET. DENIES N/V. MEDICATED WITH TYLENOL FOR C/O OF BACK PAIN. PT NON-AMBULATORY. USING SIT-STAND LIVE LIFT FOR TRANSFERS. PT TRANSFERED FROM BED TO BSC ONCE. PT PASSING FLATUS. NO BM THIS SHIFT. PT INCONTINENT ONCE. OTHERWISE VOIDING IN URINAL WITH ASSISTANCE. BLADDER SCAN SHOWED >500. PT ABLE TO VOID 300ML AFTER SCAN. VOIDED ANOTHER 175 ML THIS MORNING. NYSTATIN POWDER APPLIED TO SKIN FOLDS PER EMAR. MEPILEX PLACED TO COCCYX FOR REDNESS.
--- NOTE | 2019-01-03 11:27 | NUR ---
therapy in to see pt.
--- NOTE | 2019-01-03 13:31 | NUR ---
PT DC'D TO SNF LEFT UNIT VIA TRANSPORT FOR SNF IN [facility]. WC AND POSSESSIONS TAKEN W/PT. ATTEMPTED TO CALL REPORT TO [facility] PRIOR TO DC, WAS INFORMED RN WOULD CALL BACK FOR REPORT.
--- NOTE | 2019-01-03 13:48 | NUR ---
REPORT GIVEN TO DORIS AT [facility]
== END 2019-01-03 13:15 | DRG 330 ==
LOC: SURS 12-28 10:01 → PRE IP 12-28 11:30 → ICUE 12-28 15:40 → SURS 12-29 10:09 → ENPENDDIS 01-03 08:07 → SURS 01-03 13:15
PROVIDERS: Surgery; ADMIT Surgery
PROC: 0DTF0ZZ Resection of Right Large Intestine, Open Approach (ICD-10-PCS; principal; 2018-12-28 11:30)
PROC: 0DNU0ZZ Release Omentum, Open Approach (ICD-10-PCS; 2018-12-28 11:30)
DX: D37.4 Neoplasm of uncertain behavior of colon (principal); K42.0 Umbilical hernia with obstruction, without gangrene; K66.0 Peritoneal adhesions (postprocedural) (postinfection); G20 Parkinson's disease; E66.01 Morbid (severe) obesity due to excess calories; Z68.35 Body mass index [BMI] 35.0-35.9, adult; Z53.31 Laparoscopic surgical procedure converted to open procedure; E78.00 Pure hypercholesterolemia, unspecified; I10 Essential (primary) hypertension; I25.2 Old myocardial infarction; F32.9 Major depressive disorder, single episode, unspecified; Z95.5 Presence of coronary angioplasty implant and graft; Z87.891 Personal history of nicotine dependence; E11.65 Type 2 diabetes mellitus with hyperglycemia; N40.1 Benign prostatic hyperplasia with lower urinary tract symptoms; R33.9 Retention of urine, unspecified
CPT/HCPCS: 36415; 51701; 80048; 81001; 82947; 83735; 84100; 85025; 85027; 86850; 86900; 86901; 88307; 88309; 94640; 94760; 97110; 97163; 97166; 97530; 97535; A9270; J0690; J1650; J2370; J2405; J2704; J3010; J7030; J7050; J7120; Q0163

== ENCOUNTER 2019-03-05 16:19 | Emergency (ER) | payer MEDICARE, OTHER ==
[~2019-03-05] VITALS: Ht 172.7 cm; Wt 117.9 kg
[2019-03-05] MEDS ORDERED: Loratadine10 MG PO (17:35)
[2019-03-05] MEDS ORDERED: TAMS.4ER PO (17:36)
[2019-03-05] MEDS ORDERED: MELA3 PO (17:36)
[2019-03-05 18:39] LABS: Source, Urine Catheter
[2019-03-05 18:52] LABS: Appearance, Urine Hazy (Clear); Bilirubin, Urine Neg (Neg); Blood, Urine 4+ (Neg); Color, Urine Amber (P-Yellow); Glucose Qualitative, Urine Neg (Neg); Ketones, Urine 1+ (Neg); Leukocyte Esterase, Urine 3+ (Neg); Nitrite, Urine Neg (Neg); Protein, Urine 3+ (Neg); Urobilinogen, Urine 3+ (Normal)
[2019-03-05 18:58] LABS: Bacteria Many /hpf; Squamous Epithelial Cells Not Seen /hpf (Few); White Blood Cells, Urine 25-50 /hpf (0-5)
[2019-03-05] MEDS ORDERED: CEPH500 PO (19:07)
== END 2019-03-05 20:28 | disposition home or self-care (01) ==
LOC: ER 16:19
PROVIDERS: Emergency Medicine
DX: S20.211A Contusion of right front wall of thorax, initial encounter (principal); R91.1 Solitary pulmonary nodule; N39.0 Urinary tract infection, site not specified; G20 Parkinson's disease; I10 Essential (primary) hypertension; E11.9 Type 2 diabetes mellitus without complications; F32.9 Major depressive disorder, single episode, unspecified; F41.9 Anxiety disorder, unspecified; Z88.5 Allergy status to narcotic agent; Z79.899 Other long term (current) drug therapy; Z87.891 Personal history of nicotine dependence; W19.XXXA Unspecified fall, initial encounter
CPT/HCPCS: 71046; 81001; 87077; 87086; 87186; 99284-25; A9270-GY

== ENCOUNTER → 2019-03-09 | Outpatient (CLI) | payer MEDICARE, OTHER ==
[~2019-03-09] MED LIST changes: +Loratadine10 MG PO; +MELA3 PO; +TAMS.4ER PO
[2019-03-09 13:28] LABS: Source, Urine Catheter
[2019-03-09 14:37] LABS: Bilirubin, Urine Neg (Neg); Blood, Urine 5+ (Neg); Glucose Qualitative, Urine Neg (Neg); Ketones, Urine 1+ (Neg); Leukocyte Esterase, Urine 2+ (Neg); Nitrite, Urine Neg (Neg); Protein, Urine 2+ (Neg); Urobilinogen, Urine 2+ (Normal)
[2019-03-09 14:49] LABS: Appearance, Urine Hazy (Clear); Color, Urine Yellow (P-Yellow)
[2019-03-09 14:50] LABS: Bacteria Mod /hpf; Red Blood Cells, Urine TNTC /hpf (0-2); Squamous Epithelial Cells Rare /hpf (Few); White Blood Cells, Urine 25-50 /hpf (0-5)
== END | disposition home or self-care (01) ==
LOC: LAB SHORT 13:26 → LAB 13:26
PROVIDERS: Family Medicine
DX: R33.8 Other retention of urine (principal)
CPT/HCPCS: 81001; 87077; 87086; 87186

== ENCOUNTER → 2019-03-23 | Outpatient (CLI) | payer MEDICARE, OTHER ==
[2019-03-23 11:12] LABS: Source, Urine Catheter
[2019-03-23 12:06] LABS: Bilirubin, Urine Neg (Neg); Blood, Urine 3+ (Neg); Glucose Qualitative, Urine Neg (Neg); Ketones, Urine Neg (Neg); Leukocyte Esterase, Urine 3+ (Neg); Nitrite, Urine Neg (Neg); Protein, Urine 3+ (Neg); Urobilinogen, Urine 1+ (Normal)
[2019-03-23 12:23] LABS: Appearance, Urine Turbid (Clear); Color, Urine Yellow (P-Yellow)
[2019-03-23 12:27] LABS: Bacteria Many /hpf; Red Blood Cells, Urine TNTC /hpf (0-2); Squamous Epithelial Cells Few /hpf (Few); White Blood Cells, Urine TNTC /hpf (0-5)
== END | disposition home or self-care (01) ==
LOC: OLS 10:40 → LAB SHORT 10:40
PROVIDERS: Family Medicine
DX: R33.8 Other retention of urine (principal)
CPT/HCPCS: 81001; 87077; 87086; 87186

== ENCOUNTER → 2019-04-10 | Outpatient (CLI) | payer MEDICARE, OTHER ==
[2019-04-10 14:00] LABS: Bilirubin, Urine Neg (Neg); Blood, Urine 5+ (Neg); Glucose Qualitative, Urine Neg (Neg); Ketones, Urine 1+ (Neg); Leukocyte Esterase, Urine 1+ (Neg); Nitrite, Urine Neg (Neg); Protein, Urine 2+ (Neg); Specific Gravity, Urine 1.015 (1.003-1.022); Urobilinogen, Urine 2+ (Normal)
[2019-04-10 14:15] LABS: Appearance, Urine Clear (Clear); Color, Urine Yellow (P-Yellow); Mucus Light (0-Heavy); Red Blood Cells, Urine TNTC /hpf (0-2)
[2019-04-10 14:16] LABS: Bacteria Few /hpf; Squamous Epithelial Cells Rare /hpf (Few)
== END | disposition home or self-care (01) ==
LOC: LAB SHORT 12:27 → LAB 12:27
PROVIDERS: Family Medicine
DX: N18.2 Chronic kidney disease, stage 2 (mild) (principal); R33.8 Other retention of urine
CPT/HCPCS: 81001

== ENCOUNTER → 2019-04-26 | Outpatient (CLI) | payer MEDICARE, OTHER ==
[2019-04-26 16:55] LABS: Source, Urine Clean Catch
[2019-04-26 17:35] LABS: Bilirubin, Urine Neg (Neg); Blood, Urine 4+ (Neg); Glucose Qualitative, Urine Neg (Neg); Ketones, Urine Neg (Neg); Leukocyte Esterase, Urine 3+ (Neg); Nitrite, Urine Neg (Neg); Protein, Urine 3+ (Neg); Urobilinogen, Urine NORM (Normal)
[2019-04-26 17:57] LABS: Appearance, Urine Turbid (Clear); Color, Urine Yellow (P-Yellow)
[2019-04-26 18:01] LABS: Bacteria Many /hpf; Red Blood Cells, Urine TNTC /hpf (0-2); Squamous Epithelial Cells Few /hpf (Few); Triple Phosphate Crystals Many /hpf; White Blood Cells, Urine TNTC /hpf (0-5)
== END | disposition home or self-care (01) ==
LOC: LAB HH 16:50
PROVIDERS: Family Medicine
DX: R33.8 Other retention of urine (principal)
CPT/HCPCS: 81001; 87077; 87086; 87186

== ENCOUNTER 2019-05-18 11:04 | Inpatient (IN) | payer MEDICARE, OTHER ==
[~2019-05-18] VITALS: Ht 177.8 cm; Wt 89.2 kg
[~2019-05-18 11:04] MED LIST changes: +ACET325 PO; -Tylenol325 MG PO
[2019-05-18 11:39] LABS: BASOPHILS ABSOLUTE AUTO 0.02 K/mm3 (0.00-0.23); BASOPHILS PERCENT AUTO 0 % (0-2); EOSINOPHILS ABSOLUTE AUTO 0.02 K/mm3 (0.00-0.68); EOSINOPHILS PERCENT AUTO 0 % (0-6); Hematocrit 41.5 % (37.0-53.0); Hemoglobin 13.4 g/dL (13.5-17.5); IMMATURE GRAN ABSOLUTE AUTO 0.06 K/mm3 (0.00-0.10); IMMATURE GRAN PERCENT AUTO 1 % (0-1); LYMPHOCYTES ABSOLUTE AUTO 1.19 K/mm3 (0.84-5.20); LYMPHOCYTES PERCENT AUTO 15 % (21-46); MONOCYTES ABSOLUTE AUTO 0.47 K/mm3 (0.16-1.47); MONOCYTES PERCENT AUTO 6 % (4-13); Mean Corpuscular HGB 29.7 pg (26.0-34.0); Mean Corpuscular HGB Conc 32.3 g/dL (31.5-36.5); Mean Corpuscular Volume 92 fL (80-100); Mean Platelet Volume 10.3 fL (9.1-12.4); NEUTROPHILS ABSOLUTE AUTO 6.26 K/mm3 (1.96-9.15); NEUTROPHILS PERCENT AUTO 78 % (41-73); Platelet Count 220 K/mm3 (150-400); RDW Coefficient Variation 20.3 % (11.7-14.2); Red Blood Cell Count 4.51 M/mm3 (4.30-5.90); White Blood Cell Count 8.02 K/mm3 (4.00-11.30)
[2019-05-18 11:50] LABS: Albumin, Blood 2.9 g/dL (3.4-5.0); Albumin/Globulin Ratio 0.8 (0.8-1.8); Bilirubin, Total 0.6 mg/dL (0.1-1.0); Bun/Creatinine Ratio 24.4 (12.0-20.0); Calcium, Blood 8.6 mg/dL (8.5-10.1); Creatinine, Blood 4.42 mg/dL (0.60-1.20); Globulin, Blood 3.8 g/dL (2.2-4.0); Potassium, Blood 5.6 mmol/L (3.5-5.5); Total Protein, Blood 6.7 g/dL (6.4-8.2)
[2019-05-18] MEDS ORDERED: Carbidopa-Levo1 EACH PO (12:13)
[2019-05-18] MEDS ORDERED: BACTRIM DS TAB1 EACH PO ×2 (12:14→13:50)
[2019-05-18] MEDS ORDERED: BISA10S PR (12:18)
[2019-05-18] MEDS ORDERED: ANTACID PLUS A355 ML PO (12:18)
[2019-05-18] MEDS ORDERED: LOPE2C PO (12:20)
[2019-05-18] MEDS ORDERED: ONDA4 PO (12:21)
[2019-05-18] MEDS ORDERED: Secura Protecti50 GM TP (12:22)
[2019-05-18] MEDS ORDERED: MILK OF MA400 MG/5 M PO (12:22)
[2019-05-18 12:58] LABS: Source, Urine Voided
[2019-05-18 13:05] LABS: Bilirubin, Urine Neg (Neg); Blood, Urine 5+ (Neg); Glucose Qualitative, Urine Neg (Neg); Ketones, Urine 1+ (Neg); Leukocyte Esterase, Urine 3+ (Neg); Nitrite, Urine Neg (Neg); Protein, Urine 3+ (Neg); Urobilinogen, Urine NORM (Normal)
[2019-05-18 13:27] LABS: Appearance, Urine Cloudy (Clear); Color, Urine Yellow (P-Yellow)
[2019-05-18 13:28] LABS: White Blood Cells, Urine TNTC /hpf (0-5)
[2019-05-18 13:29] LABS: Bacteria Many /hpf; Squamous Epithelial Cells Rare /hpf (Few)
[2019-05-18] MEDS ORDERED: Vitamin D2000 UNIT PO (13:53)
[2019-05-18 15:03] LABS: International Normalized Ratio 1.21; Prothrombin Time Results 12.8 Sec (9.7-11.5)
--- NOTE | 2019-05-18 16:43 | NUR ---
PT ARRIVED TO PCU VIA GURNEY FROM ED. REPORT FROM PRAVEEN DONATO, PT MOVED TO PCU BED, HE HELPS TO TURN, A/OX3, PLEASANT AND COOPERATIVE WITH CARE, FOLLOWS COMMANDS WELL, DENIES PAIN, LUNGS ARE CLEAR T/O, A BIT DIM IN BASES, IS ON R/A, NO COUGH NOTED, HRR, TELE UNABLE TO BE READ HE HAS A BRAIN STIMULATOR, THIS WAS D/CD, NO EDEMA NOTED, PPP FAINT, CAP REFILL <3SEC, VS STABLE, AFEBRILE, IV SITE IS CLEAR AND PATENT, BTX4, ABD ROUND AND LARGER ON THE RIGHT THAN ON THE LEFT, SOFT, NONTENDER, VOIDS VIA BARRERA 16F, DRAINING TURBID YELLOW URINE, SKIN HAS ABRASIONS TO KNEES, STATES HE FELL AT [facility], IV X2 TO LFA, AND RFA, SITES ARE CLEAR AND PATENT, INFUSING NS ORDERED, BLOOD GLUCOSE WAS 66 ON ARRIVAL GAVE HIM APPLE JUICE AND ICE CREAM. ORIENTED TO ROOM LAYOUT AND CALL SYSTEM, CALL LIGHT IN REACH.
--- NOTE | 2019-05-18 18:09 | NUR ---
PT GLUCOSE CAME BACK UP TO WNL, DOING OK, RELAXING IN BED, HAD SOME DINNER, CALL LIGHT IN REACH.
--- NOTE | 2019-05-18 18:33 | NUR ---
GOT PT UP TO BSC, HE HAS A TREMOR AND WHEN HE STOOD HIS FEET TRIED TO CROSS AND WAS A DIFF TRANSFER, HIS LEGS ARE SO STIFF, TWO PERSON ASSIST USING A WALKER,CALL LIGHT IN REACH.
[2019-05-18 22:42] LABS: Source, Urine Catheter
[2019-05-18 22:47] LABS: Appearance, Urine Hazy (Clear); Bilirubin, Urine Neg (Neg); Blood, Urine 5+ (Neg); Color, Urine Yellow (P-Yellow); Glucose Qualitative, Urine Neg (Neg); Ketones, Urine 1+ (Neg); Leukocyte Esterase, Urine 3+ (Neg); Nitrite, Urine Neg (Neg); Protein, Urine 2+ (Neg); Specific Gravity, Urine 1.015 (1.003-1.022); Urobilinogen, Urine NORM (Normal)
[2019-05-18 22:54] LABS: Squamous Epithelial Cells Few /hpf (Few); White Blood Cells, Urine TNTC /hpf (0-5)
[2019-05-18 22:55] LABS: Bacteria Mod /hpf
--- NOTE | 2019-05-19 00:26 | NUR ---
PT CBG 64, B/P 86/44, DR. HOUSTON NOTIFIED, ORDERS OBTAINED FOR 500ML NS BOLUS, FOLLOWED BY D51/2NS @ 75ML X 1LITER.
--- NOTE | 2019-05-19 00:28 | NUR ---
LATE ENTRY 05/18/19 @ 17:40- PT AWAKE, ALERT, ORIENTED TO PERSON AND PLACE. STATES HE HAS SHOULDER PAIN /, PT MEDICATED WITH TYLENOL WITH GOOD RELIEF NOTED. HRR, NO EDEMA NOTED. BARRERA CATHETER DRAINING YELLOW WITH THICK SEDIMENT, UR SAMPLE SENT.
[2019-05-19 04:23] LABS: BASOPHILS ABSOLUTE AUTO 0.02 K/mm3 (0.00-0.23); BASOPHILS PERCENT AUTO 0 % (0-2); EOSINOPHILS ABSOLUTE AUTO 0.04 K/mm3 (0.00-0.68); EOSINOPHILS PERCENT AUTO 1 % (0-6); Hematocrit 37.3 % (37.0-53.0); Hemoglobin 11.9 g/dL (13.5-17.5); IMMATURE GRAN ABSOLUTE AUTO 0.05 K/mm3 (0.00-0.10); IMMATURE GRAN PERCENT AUTO 1 % (0-1); LYMPHOCYTES ABSOLUTE AUTO 0.92 K/mm3 (0.84-5.20); LYMPHOCYTES PERCENT AUTO 12 % (21-46); MONOCYTES ABSOLUTE AUTO 0.46 K/mm3 (0.16-1.47); MONOCYTES PERCENT AUTO 6 % (4-13); Mean Corpuscular HGB 29.5 pg (26.0-34.0); Mean Corpuscular HGB Conc 31.9 g/dL (31.5-36.5); Mean Corpuscular Volume 92 fL (80-100); NEUTROPHILS ABSOLUTE AUTO 6.29 K/mm3 (1.96-9.15); NEUTROPHILS PERCENT AUTO 81 % (41-73); Platelet Count 189 K/mm3 (150-400); RDW Coefficient Variation 20.3 % (11.7-14.2); RDW Standard Deviation 69.5 fL (35.1-46.3); Red Blood Cell Count 4.04 M/mm3 (4.30-5.90); White Blood Cell Count 7.78 K/mm3 (4.00-11.30)
[2019-05-19 05:01] LABS: Albumin, Blood 2.4 g/dL (3.4-5.0); Albumin/Globulin Ratio 0.7 (0.8-1.8); Bilirubin, Total 0.5 mg/dL (0.1-1.0); Bun/Creatinine Ratio 32.6 (12.0-20.0); Calcium, Blood 8.2 mg/dL (8.5-10.1); Creatinine, Blood 2.39 mg/dL (0.60-1.20); Globulin, Blood 3.4 g/dL (2.2-4.0); Potassium, Blood 5.1 mmol/L (3.5-5.5); Total Protein, Blood 5.8 g/dL (6.4-8.2)
--- NOTE | 2019-05-19 06:34 | NUR ---
PT IS HYPOTENSIVE, LAST B/P WAS 90/44. PT RECEIVED 1 NS 500ML BOLUS FOR B/P 86/44. PT IS HARD OF HEARING, CONFUSED AT TIMES. BLOOD SUGAR WAS 64, PT ATE SMALL AMOUNT OF PUDDING AND SMALL SIP OF SODE, CBG CAME UP TO 90. PT THEN HAD ANOTHER CBG AT 64, DR. HOUSTON NOTIFIED, D5-1/2NS IVF ORDERED. PT BLOOD GLUCOSE THIS MORNING IS 73. PT DENIES NAUSEA, BUT DOES NOT LIKE EATING TO GET HIS BLOOD SUGAR UP. ABDOMEN LARGE, ROUND, PT HAD LARGE INCONTINENT BROWN STOOL. BARRERA CATHETER DRAINED 750ML OF APOLINAR COLORED, URINE WITH MUCOUS NOTED IN URINE. IV W/O REDNESS, SWELLING OR TENDERNESS. BED IN LOW POSITION, CALL SERRNAO WITHIN REACH.
--- NOTE | 2019-05-19 07:33 | NUR ---
ASSUMED CARE: PT RESTING QUIETLY IN BED. DISPUTE RESOLUTION SPECIALIST AND RN CHANGED PT'S ATTENDS AND COCCYX DRESSING. PT FOLLOWED DIRECTIONS BUT FLAT AFFECT AND APPEARS CONFUSED. NO ACUTE NEEDS OR CONCERNS AT THIS TIME.
--- NOTE | 2019-05-19 16:15 | NUR ---
PT TRANSFERRED TO ROOM 341. TRANSFERRED VIA BED BY 2 CNAS. REPORT GIVEN TO KEYLA DONATO. ATTENDS CHANGE AND COCCYX DRESSING CHANGED PRIOR TO TRANSFER. NO FURTHER NEEDS OR CONCERNS NOTED PRIOR TO TRANSFER.
--- NOTE | 2019-05-19 16:19 | NUR ---
1600 ASSUMED CARE FROM PIPE DONATO . PT SLEEPING AND WAS LEFT IN BED . NO DISTRESS NOTED.
--- NOTE | 2019-05-19 18:32 | NUR ---
PT TRANFERRED FROM U THIS SHIFT. HE HAS BEEN SLEEPING SINCE HIS ARRIVAL. DAUGHTER CALLED AND INSTRUCTED THIS NURSE HOW TO CHARGE HIS BRAIN STIMULATOR . PT HAS HOLLY.
--- NOTE | 2019-05-19 18:50 | NUR ---
ASSUMED CARE RECEIVED REPORT FROM DEBBIE DONATO. ASSUMED CARE OF PT. IN NO ACUTE DISTRESS AT THIS TIME, RESTING COMFORTABLY. BRAIN STIMULATOR APPLIED TO CHARGE, PT TOLERATING WELL. DENIES ANY NEEDS. CALL LIGHT AND POSSESSIONS IN REACH, BED IN LOWEST POSITION WITH BED ALARM ACTIVATED. WILL CONTINUE TO MONITOR.
[2019-05-20 04:02] LABS: BASOPHILS ABSOLUTE AUTO 0.01 K/mm3 (0.00-0.23); BASOPHILS PERCENT AUTO 0 % (0-2); EOSINOPHILS ABSOLUTE AUTO 0.12 K/mm3 (0.00-0.68); EOSINOPHILS PERCENT AUTO 2 % (0-6); Hematocrit 37.7 % (37.0-53.0); Hemoglobin 12.2 g/dL (13.5-17.5); IMMATURE GRAN ABSOLUTE AUTO 0.01 K/mm3 (0.00-0.10); IMMATURE GRAN PERCENT AUTO 0 % (0-1); LYMPHOCYTES ABSOLUTE AUTO 1.22 K/mm3 (0.84-5.20); LYMPHOCYTES PERCENT AUTO 19 % (21-46); MONOCYTES ABSOLUTE AUTO 0.44 K/mm3 (0.16-1.47); MONOCYTES PERCENT AUTO 7 % (4-13); Mean Corpuscular HGB 29.4 pg (26.0-34.0); Mean Corpuscular HGB Conc 32.4 g/dL (31.5-36.5); Mean Corpuscular Volume 91 fL (80-100); NEUTROPHILS ABSOLUTE AUTO 4.59 K/mm3 (1.96-9.15); NEUTROPHILS PERCENT AUTO 72 % (41-73); Platelet Count 188 K/mm3 (150-400); RDW Coefficient Variation 20.2 % (11.7-14.2); RDW Standard Deviation 67.4 fL (35.1-46.3); Red Blood Cell Count 4.15 M/mm3 (4.30-5.90); White Blood Cell Count 6.39 K/mm3 (4.00-11.30)
[2019-05-20 04:24] LABS: Alanine Aminotransfer (ALT/SGP 28 U/L (12-78); Albumin, Blood 2.4 g/dL (3.4-5.0); Albumin/Globulin Ratio 0.8 (0.8-1.8); Alk Phos 138 U/L (50-136); Anion Gap 7 mmol/L (6-16); Aspartate Aminotrans (AST/SGOT 35 U/L (12-37); Bilirubin, Total 0.6 mg/dL (0.1-1.0); Blood Urea Nitrogen 43 mg/dL (8-24); Bun/Creatinine Ratio 40.6 (12.0-20.0); CO2, Blood 19 mmol/L (21-32); Calcium, Blood 8.5 mg/dL (8.5-10.1); Chloride, Blood 113 mmol/L (98-108); Creatinine, Blood 1.06 mg/dL (0.60-1.20); Globulin, Blood 3.2 g/dL (2.2-4.0); Glomerular Filtration Rate >60 (60-); Glucose, Blood 80 mg/dL (70-99); Potassium, Blood 4.1 mmol/L (3.5-5.5); Sodium, Blood 139 mmol/L (136-145); Total Protein, Blood 5.6 g/dL (6.4-8.2)
--- NOTE | 2019-05-20 06:08 | NUR ---
SHIFT SUMMARY: NO ACUTE EVENTS NOTED T/O NIGHT. PT DROWSY, PO MEDS HELD. PT PULLED IV EARLY THIS AM, NEW IV PLACED, IVF INFUSING ORDERED. VS STABLE. PT REMAINS CONFUSED, ALERT TO SELF AND SURROUNDINGS, NO ATTEMPTS TO EXIT BED T/O NIGHT, PT SLEEPING AT THIS TIME. CALL LIGHT, POSSESSIONS IN REACH. BED IN LOWEST POSITION WITH BED ALARM ACTIVATED. WILL CONTINUE TO MONITOR UNTIL DAY SHIFT RN ASSUMES CARE.
--- NOTE | 2019-05-20 09:17 | NUR ---
PT UNABLE TO SAFELY TAKE MEDS . UPON ASSUMING CARE THIS MORING PT HAS SLEPT AND UNRECEPTIVE TO TAKING ANY THING PO. HE IS NO DISTRESS AND WILL WAKE WITH LOUD STIMULATION. ST CONSULT ORDERED THIS MORNING. PT SLEEPING PEACEFULLY WITH NO DISTRESS NOTED.
--- NOTE | 2019-05-20 11:48 | NUR ---
PTS FAMILY HAS ASKED TO SPEAK WITH DISCHARGE PLANNERS PRIOR TO DC. FAMILY IS CONCERNERED WITH PT RETURNING TO [facility] AND PREFERS TO HAVE HIM PLACED AT [facility]. FAMILY ALSO IS WANTING TO DISCUSS CODE CHANGE AND PALLATIVE CARE OPTIONS. PT HAS BEEN PLACED IN RESTRAINTS DUE TO PULLING OUT IV LINES AND CONTINUING TO DO SO AFTER REPLACEMENT OF IV. HE REMAINS VERY CONFUSED, REFUSING MEDS . THIS NURSE PUT IN ST ORDER DUE TO DYSPHAGIA .
--- NOTE | 2019-05-20 16:33 | NUR ---
PT HAD TO BE PLACED IN SOFT RESTRAINTS DUE TO CONTINUALLY PULLING OUT AND ON HIS IV LINES. PT IS VERY CONFUSED AND EVEN WITH REDIRECTION CONTINUES TO PULL ON LINES. FAMILY NOTIFIED OF CONDITION. FAMILY TO COME IN AND TALK WITH PALLIATIVE CARE AND DC PLANNERS. PT RESTING COMFORTABLY AT THIS TIME . HAS BEEN CHECK AND CHANGED Q2 AND CIRCULATION CHECKED ALONG WITH ROM PROVIDED BY STAFF. CALL LIGHT WITHIN REACH.
--- NOTE | 2019-05-20 18:55 | NUR ---
ASSUMED CARE RECEIVED REPORT FROM DAY SHIFT RN. ASSUMED CARE OF PT, RESTING COMFORTABLY AT THIS TIME, NO S/S ACUTE DISTRESS NOTED. DROWSY, MUMBLES OCCASIONALLY. RESTRAINTS TO LT ARM INTACT, SKIN WARM AND DRY, GOOD CAP REFILL, PULSE STRONG. BRAIN STIMULATOR APPLIED TO CHARGE. CALL LIGHT, POSSESSIONS IN REACH, BED IN LOWEST POSITION, BED ALARM ACTIVATED. WILL CONTINUE TO MONITOR.
--- NOTE | 2019-05-20 19:15 | NUR ---
had extensive conversation with patients daughter today. She states he has been declining since the isolation at his assisted living. States more parkinsons symptoms and halluciantions. They have nott been able to see him to reduce his stress and care needs. They have been discussing how it might be getting to be time to consider hospice. He has been struggling with chronic UTI's and worsening neurological symptoms. The daughter had never experienced hospice. review of what they offer. they feel he needs more care and he was once at [facility] and they feel he should maybe go back there on hospice. They are considering taking him home but not sure they can manage with home schooling the children. Review of code status and a polst. Daughter feels he would want DNR with limited treatment she will discuss with her family. updated nursing on family education will update managers and review pt meds and symptoms.
--- NOTE | 2019-05-20 20:55 | NUR ---
UPDATE THIS RN GIVING DAUGHTER AN UPDATE ON PT CONDITION. ADDRESSED CONCERNS REGARDING PT MENTAL STATUS, AND REINFORCED PRIOR DISCUSSION REGARDING PLAN OF CARE AND DISCHARGE. FAMILY INDICATED UNDERSTANDING.
--- NOTE | 2019-05-20 21:30 | NUR ---
THIS RN AT BEDSIDE ADMINISTERING HS MEDICATIONS, SCANNING ID BAND. PT STATES "YOU GUYS HAVE ME TIED DOWN PERMANENTLY." REMINDED PT OF REASON FOR CONTINUED USE OF RESTRAINTS, TO MAINTAIN PATENT IV SITE. REITERATED TO PT THAT ASSESSMENT IS ONGOING AND NEED FOR CONTINUED USE OF RESTRAINTS IS BEING RE-EVALUATED PRN. PT AGREEABLE TO PLAN. WILL CONTINUE TO MONITOR.
[2019-05-21 04:26] LABS: BASOPHILS ABSOLUTE AUTO 0.03 K/mm3 (0.00-0.23); BASOPHILS PERCENT AUTO 1 % (0-2); EOSINOPHILS ABSOLUTE AUTO 0.22 K/mm3 (0.00-0.68); EOSINOPHILS PERCENT AUTO 4 % (0-6); Hematocrit 36.7 % (37.0-53.0); Hemoglobin 11.7 g/dL (13.5-17.5); IMMATURE GRAN ABSOLUTE AUTO 0.03 K/mm3 (0.00-0.10); IMMATURE GRAN PERCENT AUTO 1 % (0-1); LYMPHOCYTES ABSOLUTE AUTO 1.77 K/mm3 (0.84-5.20); LYMPHOCYTES PERCENT AUTO 30 % (21-46); MONOCYTES ABSOLUTE AUTO 0.37 K/mm3 (0.16-1.47); MONOCYTES PERCENT AUTO 6 % (4-13); Mean Corpuscular HGB 29.5 pg (26.0-34.0); Mean Corpuscular HGB Conc 31.9 g/dL (31.5-36.5); Mean Corpuscular Volume 93 fL (80-100); Mean Platelet Volume 9.9 fL (9.1-12.4); NEUTROPHILS ABSOLUTE AUTO 3.58 K/mm3 (1.96-9.15); NEUTROPHILS PERCENT AUTO 60 % (41-73); Platelet Count 160 K/mm3 (150-400); RDW Standard Deviation 68.9 fL (35.1-46.3); Red Blood Cell Count 3.96 M/mm3 (4.30-5.90)
[2019-05-21 04:46] LABS: Alanine Aminotransfer (ALT/SGP 21 U/L (12-78); Albumin, Blood 2.2 g/dL (3.4-5.0); Albumin/Globulin Ratio 0.7 (0.8-1.8); Alk Phos 130 U/L (50-136); Anion Gap 6 mmol/L (6-16); Aspartate Aminotrans (AST/SGOT 33 U/L (12-37); Bilirubin, Total 0.5 mg/dL (0.1-1.0); Blood Urea Nitrogen 17 mg/dL (8-24); Bun/Creatinine Ratio 24.1 (12.0-20.0); CO2, Blood 23 mmol/L (21-32); Calcium, Blood 8.3 mg/dL (8.5-10.1); Chloride, Blood 110 mmol/L (98-108); Globulin, Blood 3.3 g/dL (2.2-4.0); Glomerular Filtration Rate >60 (60-); Glucose, Blood 99 mg/dL (70-99); Potassium, Blood 3.8 mmol/L (3.5-5.5); Sodium, Blood 139 mmol/L (136-145); Total Protein, Blood 5.5 g/dL (6.4-8.2)
--- NOTE | 2019-05-21 05:56 | NUR ---
SHIFT SUMMARY PT REMAINS ASLEEP AT THIS TIME, NO S/S ACUTE DISTRESS NOTED. RESTRAINTS IN PLACE, PT TOLERATING WELL. NO ACUTE EVENTS NOTED T/O SHIFT, SLEPT ON AND OFF. TOOK HS MEDS CRUSHED IN APPLESAUCE, NO S/S ASPIRATION NOTED. DENIES ANY NEEDS AT THIS TIME. CALL LIGHT, POSSESSIONS IN REACH, BED IN LOWEST POSITION WITH BED ALARM ACTIVATED. WILL CONTINUE TO MONITOR UNTIL DAY RN ASSUMES CARE.
--- NOTE | 2019-05-21 15:41 | NUR ---
SHIFT SUMMARY PT IS A/O X 2-3 AT TIMES WITH NO C/O PAIN. BARRERA IS PATENT. HIS HOME BRAIN STIMULATOR WAS ON X 1 THIS MORNING. MEDS WERE GIVEN CRUSHED IN APPLESAUCE ORDERED BY SPEECH. PT WAS MADE A DNR PER HIS FAMILY AND PALLIATIVE CARE RN. WRIST RESTRAINT WAS REMOVED AND THE PT AGREED NOT TO PULL ON HIS LINES. IV FLUIDS ARE RUNNING ORDERED WITH NO ISSUES. PT IS ABLE TO MAKE HIS NEEDS KNOWN AND CALLS FOR HELP WHEN NEEDED. CALL LIGHT IS IN REACH.
--- NOTE | 2019-05-22 05:03 | NUR ---
SHIFT SUMMARY ASSUMED CARE PF PT AT 1900. PT IS A/OX2, DENIES N/T IN EXTREMITIES, HX DEMENTIA. HEART SOUNDS REGULAR, LUNG SOUNDS DIMINISHED, DENIES SOB/CP AT THIS TIME. PT HAS BEEN HAVING LOOSE STOOLS. CATHERTER DRAINING WITH MINIMUM OUTPUT, URING DARK AND APOLINAR. PT ATTEMPTED TO GET OUT OF BED ONCE DURING THE SHIFT, REORIENTED AND REPOSITINED. PT RECEIVED HIS BRAIN STIMULATOR SEASON. PT BP DROPPED INTO THE 80'S SYTOLOIC, HOSPITALIST NOTIFED AND ORDERED 500ML BOLUS, BP AFTER BOLUS WAS IN THE 90'S, WHICH HAS BEEN THEIR NORMAL, BP MEDICATIONS SHOULD BE RE-EVALUTED. PT SLEPT T/O THE NIGHT. CALL LIGHT IN REACH, BED IN LOWEST POSITION, WILL CONTINUE TO MONITOR UNTIL DAYSHIFT NURSE ARRIVES.
[2019-05-22 05:40] LABS: BASOPHILS ABSOLUTE AUTO 0.03 K/mm3 (0.00-0.23); BASOPHILS PERCENT AUTO 1 % (0-2); EOSINOPHILS ABSOLUTE AUTO 0.22 K/mm3 (0.00-0.68); EOSINOPHILS PERCENT AUTO 4 % (0-6); Hematocrit 37.2 % (37.0-53.0); IMMATURE GRAN ABSOLUTE AUTO 0.03 K/mm3 (0.00-0.10); IMMATURE GRAN PERCENT AUTO 1 % (0-1); LYMPHOCYTES ABSOLUTE AUTO 1.66 K/mm3 (0.84-5.20); LYMPHOCYTES PERCENT AUTO 31 % (21-46); MONOCYTES ABSOLUTE AUTO 0.35 K/mm3 (0.16-1.47); MONOCYTES PERCENT AUTO 7 % (4-13); Mean Corpuscular HGB 29.9 pg (26.0-34.0); Mean Corpuscular HGB Conc 32.3 g/dL (31.5-36.5); Mean Corpuscular Volume 93 fL (80-100); NEUTROPHILS ABSOLUTE AUTO 2.99 K/mm3 (1.96-9.15); NEUTROPHILS PERCENT AUTO 57 % (41-73); Platelet Count 157 K/mm3 (150-400); RDW Coefficient Variation 19.9 % (11.7-14.2); RDW Standard Deviation 68.8 fL (35.1-46.3); Red Blood Cell Count 4.02 M/mm3 (4.30-5.90); White Blood Cell Count 5.28 K/mm3 (4.00-11.30)
[2019-05-22 06:06] LABS: Alanine Aminotransfer (ALT/SGP 23 U/L (12-78); Albumin, Blood 2.1 g/dL (3.4-5.0); Albumin/Globulin Ratio 0.7 (0.8-1.8); Alk Phos 137 U/L (50-136); Anion Gap 6 mmol/L (6-16); Aspartate Aminotrans (AST/SGOT 32 U/L (12-37); Bilirubin, Total 0.6 mg/dL (0.1-1.0); Blood Urea Nitrogen 10 mg/dL (8-24); Bun/Creatinine Ratio 15.9 (12.0-20.0); CO2, Blood 22 mmol/L (21-32); Calcium, Blood 7.8 mg/dL (8.5-10.1); Chloride, Blood 111 mmol/L (98-108); Creatinine, Blood 0.63 mg/dL (0.60-1.20); Globulin, Blood 3.2 g/dL (2.2-4.0); Glomerular Filtration Rate >60 (60-); Glucose, Blood 76 mg/dL (70-99); Potassium, Blood 3.7 mmol/L (3.5-5.5); Sodium, Blood 139 mmol/L (136-145); Total Protein, Blood 5.3 g/dL (6.4-8.2)
--- NOTE | 2019-05-22 16:43 | NUR ---
Conferenced with Bedside RN Andrew and Cell Tender Jeanne. Plan is for Pt to discharge tomorrow to SNF if B/P is stable. Called and discussed plan with Pt's ex Tory. Tory is requesting a phone call from brand planner if Pt will discharge tomorrow. Palliative Care will remain available.
--- NOTE | 2019-05-22 17:08 | NUR ---
SHIFT SUMMARY PATIENT DENIES PAIN, NAUSEA, AND SHORTNESS OF BREATH. PATIENT UP 2 ASSIST WITH FWW/GAIT BELT TO CHAIR/BSC. PATIENT UP IN RECLINER FOR A FEW HOURS TODAY. PATIENT WORKED WITH PT AND OT. PATIENT HYPOTENSIVE THIS AM SO DISCHARGE POSTPONED UNTIL TOMORROW. PATIENT NAPPING, WATCHING TV, AND CHATTING WITH FAMILY. CALL LIGHT IN REACH.
--- NOTE | 2019-05-23 04:29 | NUR ---
SHIFT SUMMARY ADMITTED FOR SEPSIS SECONDARY TO UTI. DNR CODE. HOLLY HINDS'D DURING AM SHIFT. PT IS ABLE TO USE A URINAL AND URINATE SMALL AMOUNTS AT A TIME. FROM [facility], HOPEFUL FOR DC TODAY TO [facility]. 2 -STAGE 2 PRESSURE ULCERS, ONE ON EACH BUTTOCK COVERED IN MEPILEX. BM YESTERDAY ON DAY SHIFT. [place], RA, PUREE/ADA DIET. 2 PERSON PIVOT TO CHAIR OR BSC. RUNS HYPOTENSIVE, MEDS IN EMAR HAVE BEEN ADJUSTED. HX: PARKINSONS, DEMENTIA, HLD, HTN, ANXIETY, BPH, DM2, DEPRESSION
[2019-05-23 05:15] LABS: Anion Gap 5 mmol/L (6-16); Blood Urea Nitrogen 10 mg/dL (8-24); Bun/Creatinine Ratio 15.5 (12.0-20.0); CO2, Blood 25 mmol/L (21-32); Chloride, Blood 110 mmol/L (98-108); Creatinine, Blood 0.65 mg/dL (0.60-1.20); Glomerular Filtration Rate >60 (60-); Glucose, Blood 70 mg/dL (70-99); Potassium, Blood 3.8 mmol/L (3.5-5.5); Sodium, Blood 140 mmol/L (136-145)
--- NOTE | 2019-05-23 14:21 | NUR ---
PT AXO X4, SELDOVIA. DIET UPGRADED, SEE ORDERS. ORAL CARE PER ORDERS, UP TO CHAIR FOR MEALS. REPORT GIVEN TO KINGA BRIGGS WHO WILL ASSUME CARE AT THIS TIME. PT UP TO CHAIR AT THIS TIME. DENIES PAIN, SOB AND NV. SEE TRANSPORTATION MAINTENANCE WORKER NOTE. CALL LIGHT WITHIN REACH.
--- NOTE | 2019-05-23 18:21 | NUR ---
SHIFT SUMMARY ASSUMED CARE OF PATIENT THIS AFTERNOON. PATIENT DENIES PAIN, NAUSEA, AND SHORTNESS OF BREATH. PATIENT UP IN CHAIR MOST OF DAY. PATIENT STATES HE IS LOOKING FORWARD TO DISCHARGE AND FEELING STRONGER. PATIENT WORKED WITH PT TODAY. PATIENT UP 2 ASSIST WITH GAIT BELT/FWW TO CHAIR/BSC. PATIENT POSSIBLY DISCHARGING BACK TO [facility] TOMORROW. CALL LIGHT IN REACH.
--- NOTE | 2019-05-24 04:24 | NUR ---
SUMMARY NO ISSUES NOTED. PT PLESANT AND COOPERATIVE. PT CHANGED NEEDED. PT REPOSITIONED ORDERED. PT HAS SLEPT OFF AND ON. PT CURRENTLY SLEEPING AND BREATHING EASY. CALL LIGHT IN REACH AND BED ALARM ON. [facility]
--- NOTE | 2019-05-24 16:38 | NUR ---
SHIFT SUMMARY PATIENT DENIES PAIN, NAUSEA, AND HSORTNESS OF BREATH. PATIENT UP IN CHAIR THE FIRST HALF OF THE DAY. PATIENT UP 1-2 ASSIST WITH FWW/GAIT BELT TO CHAIR/BSC. PATIENT IS VERY EAGER TO DISCHARGE AND HAS ASKED SEVERAL TIMES WHEN HE CAN GO HOME. PATIENT PLEASANT AND COOPERATIVE WITH CARE. NUÑEZ SETH CALLED TO GET UPDATE ON PATIENT. PATIENT IS READY FOR DISCAHRGE AND IS PENDING PLACEMENT.
--- NOTE | 2019-05-25 07:21 | NUR ---
SHIFT SUMMARY ADMITTED FOR SEPSIS SECONDARY TO UTI. DNR CODE. AWAITING PLACEMENT AT [facility]. 2 PIVOT ASSIST TO BSC. CAN RUN HYPOTENSIVE. CONTINENT DURING DAY WHEN AWAKE, INCONTINENT WHEN SLEEPING. [place], RA, MECH SOFT-GRND MEAT DIET. 1 MEPILEX ON EACH BUTTOCK FOR 2 - STAGE TWO PRESSURE ULCERS. HX: PARKINSONS, DEMENTIA, HLD, HTN, ANXIETY, BPH, DM 2 DEPRESSION
--- NOTE | 2019-05-25 17:00 | NUR ---
SHIFT SUMMARY PT BATHED THIS SHIFT. K PAD PROVIDED FOR ISAURORASHAWN CACERES. PT STATES IT HELPS A LITTLE. PT REFUSED TO GET OUT OF BED THIS SHIFT. LITLE APPETITE. PT PROVIDED WITH SNACK WITH AFTERNOON. PT IV REMOVED AND NO IV ACCESS ORDER OBTAINED. NO OTHER CHANGES IN ASSESMENT. PT AWAITING PLACEMENT. SAVANNAH CAME TO INTERVIEW PT THIS SHIFT. VSS. WILL CONTINUE TO MONITOR UNTIL TURNOVER IS COMPLETE.
--- NOTE | 2019-05-26 06:06 | NUR ---
SHIFT SUMMARY: MAHESH IS ALERT AND ORIENTED. HE HAS THE HISTORY OF PARKINSONS AND DEMENTIA. SPEECH IS SLOW AND GARBLED, BUT HE IS ABLE TO MAKE HIS NEEDS KNOWN. DYSPHAGIA PRECAUTIONS PER ORDERS, NO COUGH OR DIFFICULTY SWALLOWING WITH MED PASS. STAGE II PRESSURE ULCER ON COCCYX, COVERED WITH MEPILEX, Q2 TURN & REPOSITION. ATTENDS IN PLACE, INCONTINENT BLADDER AND BOWEL. C/O RIGHT SHOULDER PAIN FOR WHICH HE REPORTS THE K-PAD EFFECTIVE. AWAITING PLACEMENT FOR DISCHARGE. NO IV ACCESS. VSS, NO ACUTE EVENTS OVERNIGHT. HE IS LYING IN BED WITH HIS CALL LIGHT IN REACH. WILL REPORT TO DAY SHIFT RN.
--- NOTE | 2019-05-26 16:03 | NUR ---
SHIFT SUMMARY PT IS A/O X 1-2 AND IS AT BASELINE. HE HAS NO C/O PAIN. HIS TREMORS APPEARED WORSE TODAY THAN LAST WEEK AND DR FELIZ WAS NOTIFIED AND ADJUSTED HIS DOSE OF SINEMET REFLECTED ON THE MAR. HIS HOME BRAIN STIMULATOR WAS ON FOR 30 MINUTES THIS MORNING ORDERED. PT IS ABLE TO MAKE HIS NEEDS KNOWN AT TIMES BUT NEEDS TO BE ASKED. HE DOES HAVE HIS CALL LIGHT IN REACH. BED ALARM ON FOR SAFETY.
--- NOTE | 2019-05-27 05:54 | NUR ---
SHIFT SUMMARY PT IS AN 79 Y/O MALE, ADMITTED FOR SEPSIS R/T UTI. HE IS A&O X SELF, WITH UNCONTROLLABLE TREMORS, AND CURRENTLY A 2P MAX ASSIST TO GET OUT OF BED. PT'S NEUROSTIMULATOR WAS CHARGED FOR 30 MINUTES PER ORDER. HE IS A&O X SELF ONLY. NO COMPLAINTS OF PAIN, NAUSEA OR SOB. VITAL SIGNS STABLE. PT IS SWALLOW PRECAUTIONS, ABLE TO SWALLOW MEDS CRUSHED IN APPLESAUCE WITH NO APPARENT DISTRESS. NO OTHER ACUTE CHANGES IN PT CONDITION NOTED. WILL CONTINUE TO MONITOR AND TREAT PER EMAR UNTIL HAND OFF TO DAY SHIFT RN.
--- NOTE | 2019-05-27 08:26 | NUR ---
P[ATIENT DECLINED BREAKFAST TRAY WHEN I BROUGHT IT INTO HELP ASSIST WITH FEEDING. RN WAS NOTIFIED
--- NOTE | 2019-05-27 09:45 | NUR ---
PATIENTS ATTENDS WERE CHECKED AND THEY WERE CLEAN AND DRY. PATIENT WAS ALSO REPOSTIONED.
--- NOTE | 2019-05-27 15:38 | NUR ---
SHIFT SUMMARY PT IS A/O X 2 WITH BASELINE CONFUSION. HIS TREMORS ARE STILL ACTIVE BUT HAVE IMPROVED SINCE HIS DOCTOR INCREASED HIS SINEMET YESTERDAY. HIS HOME BRAIN STIMULATOR WAS ON TODAY FOR 30 MINUTES. DRESSING WAS CHANGED TO HIS BUTTOCK AND THE ULCERS ARE SHOWING IMPROVEMENT. PT CALLS FOR HELP WHEN NEEDED TODAY. HE CALLED AND SPOKE WITH HIS DAUGHTER TODAY. HE IS RESTING IN BED WITH CALL LIGHT IN REACH.
[2019-05-28 05:15] LABS: Hematocrit 39.7 % (37.0-53.0); Hemoglobin 12.7 g/dL (13.5-17.5); Mean Corpuscular HGB 29.6 pg (26.0-34.0); Mean Corpuscular Volume 93 fL (80-100); Mean Platelet Volume 9.9 fL (9.1-12.4); Platelet Count 204 K/mm3 (150-400); RDW Coefficient Variation 19.1 % (11.7-14.2); RDW Standard Deviation 65.1 fL (35.1-46.3); Red Blood Cell Count 4.29 M/mm3 (4.30-5.90); White Blood Cell Count 6.05 K/mm3 (4.00-11.30)
[2019-05-28 05:43] LABS: Alanine Aminotransfer (ALT/SGP 21 U/L (12-78); Albumin, Blood 2.3 g/dL (3.4-5.0); Albumin/Globulin Ratio 0.6 (0.8-1.8); Alk Phos 179 U/L (50-136); Anion Gap 7 mmol/L (6-16); Aspartate Aminotrans (AST/SGOT 29 U/L (12-37); Bilirubin, Direct 0.2 mg/dL (0.0-0.3); Bilirubin, Indirect 0.6 mg/dL (0.1-0.7); Bilirubin, Total 0.8 mg/dL (0.1-1.0); Blood Urea Nitrogen 10 mg/dL (8-24); Bun/Creatinine Ratio 16.5 (12.0-20.0); CO2, Blood 28 mmol/L (21-32); Calcium, Blood 8.1 mg/dL (8.5-10.1); Chloride, Blood 104 mmol/L (98-108); Creatinine, Blood 0.61 mg/dL (0.60-1.20); Globulin, Blood 3.7 g/dL (2.2-4.0); Glomerular Filtration Rate >60 (60-); Glucose, Blood 59 mg/dL (70-99); Phosphorus, Blood 2.1 mg/dL (2.5-4.9); Potassium, Blood 3.3 mmol/L (3.5-5.5); Sodium, Blood 139 mmol/L (136-145)
--- NOTE | 2019-05-28 06:35 | NUR ---
SHIFT SUMMARY PT IS AN 79 Y/O MALE, ADMITTED FOR SEPSIS R/T UTI. HE IS A&O X SELF. PT IS A HEAVY 2PA, WITH UNCONTROLLABLE TREMORS R/T HX OF PARKINSONS. HE IS INCONTINENT, TURN Q2H. PT DENIED ANY COMPLAINTS OF ACUTE PAIN, NAUSEA OR SOB. VITAL SIGNS STABLE. NO ACUTE CHANGES IN PT CONDITION NOTED. WILL CONTINUE TO MONITOR AND TREAT PER EMAR UNTIL HAND OFF TO DAY SHIFT RN.
--- NOTE | 2019-05-28 16:22 | NUR ---
SHIFT SUMMARY PT IS A/O X 2 WITH NO C/O PAIN. HIS BRAIN STIMULATOR WAS PLACED ORDERED TODAY AND HIS TREMORS ARE AGAIN IMPROVING FROM YESTERDAY. HE DID WORK WITH PT TODAY AND WAS UP TO THE CHAIR. HIS CALLED FOR AN UPDATE ON HIS DC PLAN AND A MESSAGE WAS LEFT WITH HIS FRONT END DEVELOPER MY FOR HER TO CALL THE WITH AN UPDATE. HE IS ABLE TO MAKE HIS NEEDS KNOWN AND IS RESTING IN BED. HE HAS HIS CALL LIGHT IN REACH AND CALLS FOR HELP WHEN NEEDED.
--- NOTE | 2019-05-29 06:29 | NUR ---
79 year old MAle with sepsis related to UTI baseline PArkinsons disease & dementia continue to seek placement to memory care. PT has gross tremors and repeatedly refused magnet stimulator use. PT incontinet of urine, has oerianal nunu excoriation. Rudy andarin calmaseptic crean to reddened areas. New foam sacral protective dressing applied after karacleanse and protective ointment. Aspiration risk poor oral intake duering noc. Cooperwtive with meds crushed & given in applesauce for crushable meds. PT had bowel movement yesterday, rectal suppository held at HS. Flor Spears calls supportive. DTR unreachable not accepting calls, PT calls DTR multiple time with assist. No attempts to climb out of bed unassisted. Fall precautions and decub precautions observed.
--- NOTE | 2019-05-29 11:38 | NUR ---
HOME BRAIN STIMULATOR PLACED ON CHEST AT THIS TIME. WILL REMOVE IN THIRTY MIN.
--- NOTE | 2019-05-29 18:12 | NUR ---
SUMMARY: PT ADMITTED FOR SEPSIS/UTI. VSS, PT DROWSY TODAY, BUT AWAKENS TO VOICE, FOLLOWS DIRECTIONS. ORIENTED TO PLACE, PERSON, SITUATION. TURNED AND CHANGED Q2 PRN. VOIDING WELL. PT INTAKE IS POOR, DIETARY CONSULTED, INTAKE ENCOUARAGED WITHOUT MUCH SUCCESS. PT IS AWAITING PLACEMENT AT THIS TIME. NO ACUTE CONCERNS, WILL CTM AND REPORT TO JENNY RN.
[2019-05-30 05:44] LABS: Albumin, Blood 2.2 g/dL (3.4-5.0); Anion Gap 4 mmol/L (6-16); Blood Urea Nitrogen 13 mg/dL (8-24); Bun/Creatinine Ratio 20.5 (12.0-20.0); CO2, Blood 31 mmol/L (21-32); Calcium, Blood 7.9 mg/dL (8.5-10.1); Chloride, Blood 104 mmol/L (98-108); Creatinine, Blood 0.63 mg/dL (0.60-1.20); Glomerular Filtration Rate >60 (60-); Glucose, Blood 67 mg/dL (70-99); Phosphorus, Blood 2.6 mg/dL (2.5-4.9); Potassium, Blood 3.3 mmol/L (3.5-5.5); Sodium, Blood 139 mmol/L (136-145)
[2019-05-30] MEDS ORDERED: CHLORASEPTIC177 ML PO (13:06)
[2019-05-30] MEDS ORDERED: DIAPER RASH OIN56 GM TOP (13:11)
--- NOTE | 2019-05-30 14:00 | NUR ---
2 PERSON ASSIST WITH TRANSFERS FROM BED TO CHAIR. [facility] HERE TO PICK PT UP TO TRANSFER TO [facility]. TO [facility] VIA W/C. BELONGINGS WITH HIM ON DISCHARGE.
== END 2019-05-30 14:28 | disposition home health service (06) | DRG 871 ==
LOC: ER 11:04 → MEDS 15:34 → PCU 15:34 → MEDS 16:05 → PCU 05-19 10:48 → MEDS 05-19 16:07 → ENPENDDIS 05-30 12:31 → MEDS 05-30 14:28
PROVIDERS: Emergency Medicine; Internal Medicine; ADMIT Family Medicine
DX: A41.81 Sepsis due to Enterococcus (principal); R65.21 Severe sepsis with septic shock; G93.41 Metabolic encephalopathy; N18.4 Chronic kidney disease, stage 4 (severe); N17.9 Acute kidney failure, unspecified; E87.2 Acidosis; Z16.10 Resistance to unspecified beta lactam antibiotics; Z16.23 Resistance to quinolones and fluoroquinolones; N39.0 Urinary tract infection, site not specified; I12.9 Hypertensive chronic kidney disease with stage 1 through stage 4 chronic kidney disease, or unspecified chronic kidney disease; E11.22 Type 2 diabetes mellitus with diabetic chronic kidney disease; E78.5 Hyperlipidemia, unspecified; E83.39 Other disorders of phosphorus metabolism; E86.0 Dehydration; E87.5 Hyperkalemia; E87.6 Hypokalemia; F03.90 Unspecified dementia, unspecified severity, without behavioral disturbance, psychotic disturbance, mood disturbance, and anxiety; G20 Parkinson's disease; L89.322 Pressure ulcer of left buttock, stage 2; L89.312 Pressure ulcer of right buttock, stage 2; F32.9 Major depressive disorder, single episode, unspecified; N40.1 Benign prostatic hyperplasia with lower urinary tract symptoms; R13.10 Dysphagia, unspecified; R16.0 Hepatomegaly, not elsewhere classified; S30.810A Abrasion of lower back and pelvis, initial encounter; Z87.891 Personal history of nicotine dependence
CPT/HCPCS: 36415; 51702; 71045; 76705; 80048; 80053; 80069; 80400; 81001; 82248; 82533; 82947; 83036; 83605; 83735; 84100; 85025; 85027; 85610; 85730; 87040; 87077; 87086; 87186; 92526; 92610; 93005; 93010; 96361-59; 96365-59; 97110; 97112; 97162; 97166; 97530; 97535; 99285-25; A9270; A9270-GY; J0696; J0834; J1650; J7030; J7040; J7042; Q0163

== ENCOUNTER → 2019-06-04 | Outpatient (CLI) | payer MEDICARE, OTHER ==
[~2019-06-04] MED LIST changes: +ANTACID PLUS A355 ML PO; +BACTRIM DS TAB1 EACH PO; +BISA10S PR; +CHLORASEPTIC177 ML PO; +Carbidopa-Levo1 EACH PO; +DIAPER RASH OIN56 GM TOP; +LOPE2C PO; +MILK OF MA400 MG/5 M PO; +ONDA4 PO; +Secura Protecti50 GM TP; +Vitamin D2000 UNIT PO
[2019-06-04 12:04] LABS: Source, Urine Clean Catch
[2019-06-04 13:14] LABS: Bilirubin, Urine Neg (Neg); Blood, Urine 5+ (Neg); Glucose Qualitative, Urine Neg (Neg); Ketones, Urine 1+ (Neg); Leukocyte Esterase, Urine 3+ (Neg); Nitrite, Urine Neg (Neg); Protein, Urine 2+ (Neg); Specific Gravity, Urine 1.015 (1.003-1.022); Urobilinogen, Urine 2+ (Normal); pH, Urine 6.5 (5.0-8.0)
[2019-06-04 13:54] LABS: Appearance, Urine Turbid (Clear); Color, Urine Yellow (P-Yellow)
[2019-06-04 13:59] LABS: White Blood Cells, Urine TNTC /hpf (0-5)
[2019-06-04 14:00] LABS: Bacteria Mod /hpf; Mucus Light (0-Heavy); Squamous Epithelial Cells Not Seen /hpf (Few)
== END | disposition home or self-care (01) ==
LOC: LAB SHORT 12:02 → LAB 12:02
PROVIDERS: Family Medicine
DX: N39.0 Urinary tract infection, site not specified (principal)
CPT/HCPCS: 81001

== ENCOUNTER 2019-06-05 19:47 | Emergency (ER) | payer MEDICARE, OTHER ==
[~2019-06-05] VITALS: Ht 172.7 cm; Wt 74.8 kg
== END 2019-06-05 22:50 | disposition home or self-care (01) ==
LOC: ER 19:47
DX: S01.81XA Laceration without foreign body of other part of head, initial encounter (principal); Z88.5 Allergy status to narcotic agent; Z79.899 Other long term (current) drug therapy; I10 Essential (primary) hypertension; E11.9 Type 2 diabetes mellitus without complications; G20 Parkinson's disease; F32.9 Major depressive disorder, single episode, unspecified; F41.9 Anxiety disorder, unspecified; W07.XXXA Fall from chair, initial encounter
CPT/HCPCS: 70450; 72125; 99283-25